=== PATIENT | male | born 1965 | race African-American/Black ===

== ENCOUNTER 2022-10-10 14:08 | Inpatient (IN) | payer OTHER ==
[2022-10-10 15:22] VITALS: BMI 41.3
[2022-10-10] MEDS ORDERED: BISMUTH SUBSALICYLATE 524 MG/30 ML PO PRN (16:30)
[2022-10-10] MEDS ORDERED: ONDANSETRON *ODT* 4 MG TABLET SL PRN (16:30)
[2022-10-10] MEDS ORDERED: LORazepam 1 MG TABLET PO PRN (16:30)
[2022-10-10] MEDS ORDERED: IBUPROFEN 600 MG TABLET (FP) PO PRN (16:30)
[2022-10-10] MEDS ORDERED: DICYCLOMINE HCL 10 MG CAPSULE PO PRN (16:30)
[2022-10-10] MEDS ORDERED: BENZONATATE 200 MG CAPSULE PO PRN (16:30)
[2022-10-10] MEDS ORDERED: NICOTINE 10 MG CARTRIDGE (INHALER) IH PRN (16:30)
[2022-10-10] MEDS ORDERED: POLYETHYLENE GLYCOL (HEALTHYLAX) 3350 17 GM PACKET PO PRN (16:30)
[2022-10-10] MEDS ORDERED: IBUPROFEN 400 MG TABLET (FP) PO PRN (16:30)
[2022-10-10] MEDS ORDERED: MAG HYDROX/AL HYDROX/SIMETH 30 ML UNIT-DOSE CUP PO PRN (16:30)
[2022-10-10] MEDS ORDERED: hydrOXYzine PAMOATE 25 MG CAPSULE (FP) PO PRN (16:30)
[2022-10-10] MEDS ORDERED: NALOXONE HCL 0.4 MG/ML VIAL IM PRN (16:30)
[2022-10-10] MEDS ORDERED: BENZOCAINE/MENTHOL (CHLORASEPTIC ) LOZENGE MM PRN (16:30)
[2022-10-10] MEDS ORDERED: guaiFENesin 600 MG TABLET.ER (FP) PO PRN (16:30)
[2022-10-10] MEDS ORDERED: ACETAMINOPHEN 325 MG TABLET (FP) PO PRN (16:30)
[2022-10-10] MEDS ORDERED: METHOCARBAMOL 500 MG TABLET PO PRN (16:30)
[2022-10-10] MEDS ORDERED: LOPERAMIDE HCL 2 MG CAPSULE PO PRN (16:30)
[2022-10-10] MEDS ORDERED: NICOTINE POLACRILEX 2 MG GUM BUC PRN (16:30)
[2022-10-10] MEDS ORDERED: MAGNESIUM HYDROX 2400MG/30ML ORAL SUSPENSION 30 ML CUP PO PRN (16:30)
[2022-10-10] MEDS ORDERED: NALOXONE HCL (KLOXXADO) 8 MG SPRAY NS PRN (16:30)
[2022-10-10] MEDS ORDERED: LORazepam 2 MG TABLET ONE (17:00)
[2022-10-10] MEDS ORDERED: PRENATAL VITAMINS W/ FOLIC ACID TABLET (FP) PO ONE (17:01)
[2022-10-10] MEDS: LORazepam 2 MG TABLET PO SCH ×2 (17:03→23:40)
[2022-10-10] MEDS: PRENATAL VITAMINS W/ FOLIC ACID TABLET (FP) PO SCH (17:03)
[2022-10-10] MEDS ORDERED: MELATONIN 5 MG TABLETS PO SCH (22:00)
[2022-10-10] MEDS: THIAMINE HCL 100 MG TABLET (FP) PO SCH (23:40)
[2022-10-10] MEDS: PHENYLEPHRINE HCL/COCOA BUTTER 1 EACH SUPP.RECT RC SCH (23:40)
[2022-10-11] MEDS: LIDOCAINE HCL 5% TOP OINTMENT 50 GM TUBE TP SCH ×2 (01:06→11:37)
[2022-10-11] MEDS: CYCLOBENZAPRINE HCL 5 MG TABLET PO SCH ×2 (01:12→11:38)
[2022-10-11] MEDS: LORazepam 2 MG TABLET PO SCH ×4 (05:18→22:51)
[2022-10-11] MEDS ORDERED: LEVOTHYROXINE NA 150 MCG TABLET PO SCH (07:00)
[2022-10-11] MEDS: LEVOTHYROXINE 100 MCG, LEVOTHYROXINE 50 MCG PO SCH (07:04)
[2022-10-11] MEDS: TAMSULOSIN HCL 0.4 MG CAP PO SCH (07:49)
[2022-10-11] MEDS ORDERED: FUROSEMIDE 20 MG TABLET (FP) PO SCH ×2 (10:00→16:54)
[2022-10-11] MEDS: ASPIRIN 81 MG CHEWABLE TABLETS PO SCH (10:41)
[2022-10-11] MEDS: FINASTERIDE 5 MG TABLET (FP) PO SCH (10:42)
[2022-10-11] MEDS: amLODIPine BESYLATE 10 MG TABLET (FP) PO SCH (10:42)
[2022-10-11] MEDS: GABAPENTIN 300 MG CAPSULE PO SCH ×2 (10:42→22:51)
[2022-10-11] MEDS: CELECOXIB 100 MG CAPSULE PO SCH ×2 (10:42→22:50)
[2022-10-11] MEDS: DICLOFENAC SODIUM 75 MG TABLET.DR PO SCH ×2 (10:43→22:54)
[2022-10-11] MEDS: PHENYLEPHRINE HCL/COCOA BUTTER 1 EACH SUPP.RECT RC SCH ×2 (10:45→22:53)
[2022-10-11] MEDS: PRENATAL VITAMINS W/ FOLIC ACID TABLET (FP) PO SCH (10:45)
[2022-10-11] MEDS: BACITRACIN ZINC 15 GM TUBE TOPICAL OINTMENT TP SCH ×2 (10:46→22:57)
[2022-10-11] MEDS: FLUTICASONE PROP 0.05% 16 GM NASAL SPRAY NS SCH (12:47)
[2022-10-11 13:51] LABS: HEMATOCRIT 26.4 % (35.4-49); HEMOGLOBIN 8.4 GM/dL (11.7-16.9); MCH 25.6 pg (25.7-33.7); MCHC 31.8 g/dl (32.0-35.9); MEAN CELL VOLUME 80.4 fl (80-96); MEAN PLT VOLUME 8.6 fl (7.5-11.1); PLATELET COUNT 113 10^3/uL (134-434); RBC 3.28 M/mm3 (4.00-5.60); RDW 17.1 % (11.9-15.9); WHITE BLOOD COUNT 5.5 K/mm3 (4.0-10.0)
[2022-10-11 15:02] LABS: POTASSIUM 4.2 mmol/L (3.5-5.1)
[2022-10-11 15:06] LABS: BLOOD UREA NITROGEN 13.6 mg/dL (7-18); CALCIUM 8.8 mg/dL (8.5-10.1)
[2022-10-11 15:07] LABS: ALBUMIN 3.3 g/dl (3.4-5.0)
[2022-10-11 15:09] LABS: CREATININE 0.8 mg/dL (0.55-1.3)
[2022-10-11 15:11] LABS: BILIRUBIN,TOTAL 0.9 mg/dL (0.2-1); TOT PROT 6.9 g/dl (6.4-8.2)
[2022-10-11] MEDS: FUROSEMIDE 20 MG TABLET (FP) PO SCH (17:53)
[2022-10-11] MEDS: THIAMINE HCL 100 MG TABLET (FP) PO SCH (22:51)
[2022-10-11] MEDS: ATORVASTATIN CA 20 MG TABLET (FP) PO SCH (22:51)
[2022-10-11] MEDS: MELATONIN 5 MG TABLETS PO SCH (22:53)
[2022-10-12] MEDS: LIDOCAINE HCL 5% TOP OINTMENT 50 GM TUBE TP SCH ×2 (00:21→12:00)
[2022-10-12] MEDS: CYCLOBENZAPRINE HCL 5 MG TABLET PO SCH ×2 (00:21→12:00)
[2022-10-12] MEDS: LORazepam 1 MG TABLET PO SCH ×4 (05:50→22:20)
[2022-10-12] MEDS: FUROSEMIDE 20 MG TABLET (FP) PO SCH ×2 (05:50→13:09)
[2022-10-12] MEDS: LEVOTHYROXINE 100 MCG, LEVOTHYROXINE 50 MCG PO SCH (06:00)
[2022-10-12] MEDS: TAMSULOSIN HCL 0.4 MG CAP PO SCH (09:21)
[2022-10-12] MEDS: DICLOFENAC SODIUM 75 MG TABLET.DR PO SCH ×2 (10:59→22:20)
[2022-10-12] MEDS: PRENATAL VITAMINS W/ FOLIC ACID TABLET (FP) PO SCH (10:59)
[2022-10-12] MEDS: FLUTICASONE PROP 0.05% 16 GM NASAL SPRAY NS SCH (11:00)
[2022-10-12] MEDS: FINASTERIDE 5 MG TABLET (FP) PO SCH (11:01)
[2022-10-12] MEDS: CELECOXIB 100 MG CAPSULE PO SCH ×2 (11:01→22:19)
[2022-10-12] MEDS: GABAPENTIN 300 MG CAPSULE PO SCH ×2 (11:03→22:19)
[2022-10-12] MEDS: ASPIRIN 81 MG CHEWABLE TABLETS PO SCH (11:03)
[2022-10-12] MEDS: amLODIPine BESYLATE 10 MG TABLET (FP) PO SCH (11:03)
[2022-10-12] MEDS: PHENYLEPHRINE HCL/COCOA BUTTER 1 EACH SUPP.RECT RC SCH ×2 (11:03→22:20)
[2022-10-12] MEDS: BACITRACIN ZINC 15 GM TUBE TOPICAL OINTMENT TP SCH ×2 (11:06→22:20)
[2022-10-12] MEDS: ASCORBIC ACID 500 MG TABLET (FP) PO SCH (12:00)
[2022-10-12] MEDS: LACTULOSE 20 GM/30 ML UDC (FOR ORAL USE ONLY) PO SCH ×3 (13:09→22:20)
[2022-10-12] MEDS: FERROUS SO4 325 MG TABLET (FP) PO SCH (17:28)
[2022-10-12] MEDS: ALBUTEROL SO4 HFA INHALER IH PRN ×2 (17:34→22:21)
[2022-10-12] MEDS: MELATONIN 5 MG TABLETS PO SCH (22:19)
[2022-10-12] MEDS: THIAMINE HCL 100 MG TABLET (FP) PO SCH (22:19)
[2022-10-12] MEDS: ATORVASTATIN CA 20 MG TABLET (FP) PO SCH (22:20)
[2022-10-13] MEDS ORDERED: LORazepam 0.5 MG TABLET PO PRN
[2022-10-13] MEDS: LIDOCAINE HCL 5% TOP OINTMENT 50 GM TUBE TP SCH ×2 (01:27→11:44)
[2022-10-13] MEDS: CYCLOBENZAPRINE HCL 5 MG TABLET PO SCH ×2 (01:27→11:44)
[2022-10-13] MEDS: LORazepam 0.5 MG TABLET PO SCH ×4 (05:23→22:36)
[2022-10-13] MEDS: FUROSEMIDE 20 MG TABLET (FP) PO SCH ×2 (05:24→13:04)
[2022-10-13] MEDS: LEVOTHYROXINE 100 MCG, LEVOTHYROXINE 50 MCG PO SCH (06:27)
[2022-10-13] MEDS: FERROUS SO4 325 MG TABLET (FP) PO SCH ×2 (07:13→17:43)
[2022-10-13] MEDS: TAMSULOSIN HCL 0.4 MG CAP PO SCH (08:12)
[2022-10-13 10:14] LABS: HEMATOCRIT 25.4 % (35.4-49); HEMOGLOBIN 8.4 GM/dL (11.7-16.9); MCH 26.6 pg (25.7-33.7); MCHC 33.3 g/dl (32.0-35.9); MEAN CELL VOLUME 79.8 fl (80-96); MEAN PLT VOLUME 9.2 fl (7.5-11.1); PLATELET COUNT 118 10^3/uL (134-434); RBC 3.18 M/mm3 (4.00-5.60); RDW 16.7 % (11.9-15.9); RETICULOCYTES 3.09 % (0.5-1.5); WHITE BLOOD COUNT 6.5 K/mm3 (4.0-10.0)
[2022-10-13] MEDS: LACTULOSE 20 GM/30 ML UDC (FOR ORAL USE ONLY) PO SCH ×4 (10:36→22:35)
[2022-10-13] MEDS: PRENATAL VITAMINS W/ FOLIC ACID TABLET (FP) PO SCH (10:36)
[2022-10-13] MEDS: FLUTICASONE PROP 0.05% 16 GM NASAL SPRAY NS SCH (10:36)
[2022-10-13] MEDS: amLODIPine BESYLATE 10 MG TABLET (FP) PO SCH (10:37)
[2022-10-13] MEDS: CELECOXIB 100 MG CAPSULE PO SCH ×2 (10:38→22:35)
[2022-10-13] MEDS: PHENYLEPHRINE HCL/COCOA BUTTER 1 EACH SUPP.RECT RC SCH ×3 (10:38→22:56)
[2022-10-13] MEDS: FINASTERIDE 5 MG TABLET (FP) PO SCH (10:38)
[2022-10-13] MEDS: ASPIRIN 81 MG CHEWABLE TABLETS PO SCH (10:38)
[2022-10-13] MEDS: GABAPENTIN 300 MG CAPSULE PO SCH ×2 (10:38→22:35)
[2022-10-13] MEDS: ASCORBIC ACID 500 MG TABLET (FP) PO SCH (10:38)
[2022-10-13] MEDS: BACITRACIN ZINC 15 GM TUBE TOPICAL OINTMENT TP SCH ×2 (10:38→22:46)
[2022-10-13] MEDS: DICLOFENAC SODIUM 75 MG TABLET.DR PO SCH ×2 (10:39→22:36)
[2022-10-13] MEDS: ALBUTEROL SO4 HFA INHALER IH PRN (14:51)
[2022-10-13] MEDS: THIAMINE HCL 100 MG TABLET (FP) PO SCH (22:35)
[2022-10-13] MEDS: MELATONIN 5 MG TABLETS PO SCH (22:35)
[2022-10-13] MEDS: ATORVASTATIN CA 20 MG TABLET (FP) PO SCH (22:35)
[2022-10-14] MEDS: CYCLOBENZAPRINE HCL 5 MG TABLET PO SCH ×2 (01:30→12:15)
[2022-10-14] MEDS: LIDOCAINE HCL 5% TOP OINTMENT 50 GM TUBE TP SCH ×2 (01:30→12:18)
[2022-10-14] MEDS ORDERED: LORazepam 0.5 MG TABLET PO ONE (05:00)
[2022-10-14] MEDS: FUROSEMIDE 20 MG TABLET (FP) PO SCH ×2 (05:28→14:00)
[2022-10-14 06:08] VITALS: RESP 18
[2022-10-14] MEDS: LEVOTHYROXINE 100 MCG, LEVOTHYROXINE 50 MCG PO SCH (06:18)
[2022-10-14] MEDS: FERROUS SO4 325 MG TABLET (FP) PO SCH (07:24)
[2022-10-14] MEDS: TAMSULOSIN HCL 0.4 MG CAP PO SCH (07:40)
[2022-10-14 09:20] VITALS: BP 119/56; PULSE 72; TEMP 97.8
[2022-10-14] MEDS: GABAPENTIN 300 MG CAPSULE PO SCH (10:27)
[2022-10-14] MEDS: ASPIRIN 81 MG CHEWABLE TABLETS PO SCH (10:27)
[2022-10-14] MEDS: FLUTICASONE PROP 0.05% 16 GM NASAL SPRAY NS SCH (10:27)
[2022-10-14] MEDS: FINASTERIDE 5 MG TABLET (FP) PO SCH (10:28)
[2022-10-14] MEDS: amLODIPine BESYLATE 10 MG TABLET (FP) PO SCH (10:28)
[2022-10-14] MEDS: CELECOXIB 100 MG CAPSULE PO SCH (10:28)
[2022-10-14] MEDS: LACTULOSE 20 GM/30 ML UDC (FOR ORAL USE ONLY) PO SCH ×2 (10:29→14:00)
[2022-10-14] MEDS: DICLOFENAC SODIUM 75 MG TABLET.DR PO SCH (10:29)
[2022-10-14] MEDS: PRENATAL VITAMINS W/ FOLIC ACID TABLET (FP) PO SCH (10:29)
[2022-10-14] MEDS: ASCORBIC ACID 500 MG TABLET (FP) PO SCH (10:32)
[2022-10-14] MEDS: PHENYLEPHRINE HCL/COCOA BUTTER 1 EACH SUPP.RECT RC SCH (10:37)
[2022-10-14] MEDS: BACITRACIN ZINC 15 GM TUBE TOPICAL OINTMENT TP SCH (10:53)
== END 2022-10-14 14:05 | disposition other institution (70) | DRG 775 ==
LOC: YASAS 14:08 → Y6N 17:58
PROVIDERS: ADMIT Allergy & Immunology; ATTEND Surgery
PROC: HZ2ZZZZ Detoxification Services for Substance Abuse Treatment (ICD-10-PCS; principal; 2022-10-10)
DX: F10.230 Alcohol dependence with withdrawal, uncomplicated (principal); F12.20 Cannabis dependence, uncomplicated; F31.9 Bipolar disorder, unspecified; D50.9 Iron deficiency anemia, unspecified; E72.20 Disorder of urea cycle metabolism, unspecified; E78.5 Hyperlipidemia, unspecified; G47.30 Sleep apnea, unspecified; I10 Essential (primary) hypertension; K74.60 Unspecified cirrhosis of liver; J44.9 Chronic obstructive pulmonary disease, unspecified; M54.50 Low back pain, unspecified; G89.29 Other chronic pain; Z62.810 Personal history of physical and sexual abuse in childhood; Z96.652 Presence of left artificial knee joint; Z99.89 Dependence on other enabling machines and devices; Z59.01 Sheltered homelessness; Z56.0 Unemployment, unspecified
CPT/HCPCS: 36415; 71046-TC-FY; 80053; 82140; 82607; 82746; 83540; 83550; 85027; 85045; 86780; 87811; 93005; 93010; C9803-CS; U0003; U0005

== ENCOUNTER 2022-10-14 14:01 | Inpatient (IN) | payer OTHER ==
[2022-10-14] MEDS ORDERED: POLYETHYLENE GLYCOL (HEALTHYLAX) 3350 17 GM PACKET PO PRN (14:18)
[2022-10-14] MEDS ORDERED: guaiFENesin 600 MG TABLET.ER (FP) PO PRN (14:18)
[2022-10-14] MEDS ORDERED: AMMONIUM LACTATE 12% LOTION 225 GM BOTTLE TP PRN (14:18)
[2022-10-14] MEDS ORDERED: NALOXONE HCL (KLOXXADO) 8 MG SPRAY NS PRN (14:18)
[2022-10-14] MEDS ORDERED: METHOCARBAMOL 500 MG TABLET PO PRN (14:18)
[2022-10-14] MEDS ORDERED: IBUPROFEN 400 MG TABLET (FP) PO PRN (14:18)
[2022-10-14] MEDS ORDERED: NALOXONE HCL 0.4 MG/ML VIAL IVPUSH PRN (14:18)
[2022-10-14] MEDS ORDERED: LOPERAMIDE HCL 2 MG CAPSULE PO PRN (14:18)
[2022-10-14] MEDS ORDERED: NICOTINE POLACRILEX 4 MG GUM BUC PRN (14:18)
[2022-10-14] MEDS ORDERED: COLLOIDAL OATMEAL 1 BAR EACH TP PRN (14:18)
[2022-10-14] MEDS ORDERED: ACETAMINOPHEN 325 MG TABLET (FP) PO PRN (14:18)
[2022-10-14] MEDS ORDERED: IBUPROFEN 600 MG TABLET (FP) PO PRN (14:18)
[2022-10-14] MEDS ORDERED: MAG HYDROX/AL HYDROX/SIMETH 30 ML UNIT-DOSE CUP PO PRN (14:18)
[2022-10-14] MEDS ORDERED: MAGNESIUM HYDROX 2400MG/30ML ORAL SUSPENSION 30 ML CUP PO PRN (14:18)
[2022-10-14] MEDS ORDERED: BENZONATATE 200 MG CAPSULE PO PRN (14:18)
[2022-10-14] MEDS ORDERED: hydrOXYzine PAMOATE 25 MG CAPSULE (FP) PO PRN (14:18)
[2022-10-14] MEDS ORDERED: NICOTINE 10 MG CARTRIDGE (INHALER) IH PRN (14:18)
[2022-10-14] MEDS ORDERED: BENZOCAINE/MENTHOL (CHLORASEPTIC ) LOZENGE MM PRN (14:18)
[2022-10-14] MEDS: CYCLOBENZAPRINE HCL 5 MG TABLET PO SCH (16:55)
[2022-10-14] MEDS: LACTULOSE 20 GM/30 ML UDC (FOR ORAL USE ONLY) PO SCH ×2 (18:03→21:07)
[2022-10-14] MEDS: FERROUS SO4 325 MG TABLET (FP) PO SCH (18:03)
[2022-10-14] MEDS: THIAMINE HCL 100 MG TABLET (FP) PO SCH (21:07)
[2022-10-14] MEDS: MELATONIN 5 MG TABLETS PO SCH (21:07)
[2022-10-14] MEDS: GABAPENTIN 300 MG CAPSULE PO SCH (21:08)
[2022-10-14] MEDS: ATORVASTATIN CA 20 MG TABLET (FP) PO SCH (21:08)
[2022-10-14] MEDS: BACITRACIN ZINC 15 GM TUBE TOPICAL OINTMENT TP SCH (21:09)
[2022-10-14] MEDS: CELECOXIB 100 MG CAPSULE PO SCH (21:09)
[2022-10-14] MEDS ORDERED: PATIENT'S OWN MEDICATION (NON-FORMULARY) (Thiamine Hcl [B-1] 100 MG Tablet) PO SCH (22:00)
[2022-10-14] MEDS ORDERED: FERROUS SO4 325 MG TABLET (FP) PO SCH (22:00)
[2022-10-14] MEDS ORDERED: DICLOFENAC SODIUM 75 MG TABLET.DR PO SCH (22:00)
[2022-10-15] MEDS: LEVOTHYROXINE 100 MCG, LEVOTHYROXINE 50 MCG PO SCH (06:46)
[2022-10-15] MEDS: FUROSEMIDE 20 MG TABLET (FP) PO SCH ×2 (06:47→13:24)
[2022-10-15] MEDS: CYCLOBENZAPRINE HCL 5 MG TABLET PO SCH ×2 (06:47→21:29)
[2022-10-15] MEDS ORDERED: LEVOTHYROXINE NA 150 MCG TABLET PO SCH (07:00)
[2022-10-15] MEDS: FERROUS SO4 325 MG TABLET (FP) PO SCH ×2 (07:26→18:25)
[2022-10-15] MEDS: ALBUTEROL SO4 HFA INHALER IH PRN (08:38)
[2022-10-15] MEDS: TAMSULOSIN HCL 0.4 MG CAP PO SCH (08:40)
[2022-10-15] MEDS: ASPIRIN 81 MG CHEWABLE TABLETS PO SCH (09:52)
[2022-10-15] MEDS: CELECOXIB 100 MG CAPSULE PO SCH ×2 (09:52→21:29)
[2022-10-15] MEDS: BACITRACIN ZINC 15 GM TUBE TOPICAL OINTMENT TP SCH (09:52)
[2022-10-15] MEDS: BISACODYL 5 MG TABLET.DR (FP) PO SCH (09:53)
[2022-10-15] MEDS: FLUTICASONE PROP 0.05% 16 GM NASAL SPRAY NS SCH (09:53)
[2022-10-15] MEDS: LACTULOSE 20 GM/30 ML UDC (FOR ORAL USE ONLY) PO SCH (09:53)
[2022-10-15] MEDS: GABAPENTIN 300 MG CAPSULE PO SCH ×2 (09:54→21:29)
[2022-10-15] MEDS: FOLIC ACID 1 MG TABLET (FP) PO SCH (09:54)
[2022-10-15] MEDS: PRENATAL VITAMINS W/ FOLIC ACID TABLET (FP) PO SCH (09:55)
[2022-10-15] MEDS: amLODIPine BESYLATE 10 MG TABLET (FP) PO SCH (09:55)
[2022-10-15] MEDS: FINASTERIDE 5 MG TABLET (FP) PO SCH (09:55)
[2022-10-15] MEDS: ASCORBIC ACID 500 MG TABLET (FP) PO SCH (09:56)
[2022-10-15] MEDS: CYANOCOBALAMIN 1,000 MCG TABLET (FP) PO SCH (09:56)
[2022-10-15] MEDS ORDERED: LACTULOSE 20 GM/30 ML UDC (FOR ORAL USE ONLY) PO PRN (12:23)
[2022-10-15] MEDS: THIAMINE HCL 100 MG TABLET (FP) PO SCH (21:29)
[2022-10-15] MEDS: ATORVASTATIN CA 20 MG TABLET (FP) PO SCH (21:29)
[2022-10-15] MEDS: MELATONIN 5 MG TABLETS PO SCH (21:30)
[2022-10-16] MEDS: LEVOTHYROXINE 100 MCG, LEVOTHYROXINE 50 MCG PO SCH (06:44)
[2022-10-16] MEDS: FUROSEMIDE 20 MG TABLET (FP) PO SCH ×2 (06:44→14:04)
[2022-10-16] MEDS: FERROUS SO4 325 MG TABLET (FP) PO SCH ×2 (07:13→18:49)
[2022-10-16] MEDS: TAMSULOSIN HCL 0.4 MG CAP PO SCH (07:46)
[2022-10-16] MEDS: CYANOCOBALAMIN 1,000 MCG TABLET (FP) PO SCH (09:49)
[2022-10-16] MEDS: ASPIRIN 81 MG CHEWABLE TABLETS PO SCH (09:49)
[2022-10-16] MEDS: GABAPENTIN 300 MG CAPSULE PO SCH ×2 (09:49→21:06)
[2022-10-16] MEDS: FOLIC ACID 1 MG TABLET (FP) PO SCH (09:49)
[2022-10-16] MEDS: FINASTERIDE 5 MG TABLET (FP) PO SCH (09:50)
[2022-10-16] MEDS: ASCORBIC ACID 500 MG TABLET (FP) PO SCH (09:50)
[2022-10-16] MEDS: CELECOXIB 100 MG CAPSULE PO SCH ×2 (09:51→21:06)
[2022-10-16] MEDS: CYCLOBENZAPRINE HCL 5 MG TABLET PO SCH ×2 (09:52→21:06)
[2022-10-16] MEDS: FLUTICASONE PROP 0.05% 16 GM NASAL SPRAY NS SCH (09:52)
[2022-10-16] MEDS: BISACODYL 5 MG TABLET.DR (FP) PO SCH (09:52)
[2022-10-16] MEDS: PRENATAL VITAMINS W/ FOLIC ACID TABLET (FP) PO SCH (09:53)
[2022-10-16] MEDS: amLODIPine BESYLATE 10 MG TABLET (FP) PO SCH (09:53)
[2022-10-16] MEDS: ALBUTEROL SO4 HFA INHALER IH PRN (09:54)
[2022-10-16] MEDS: THIAMINE HCL 100 MG TABLET (FP) PO SCH (21:06)
[2022-10-16] MEDS: ATORVASTATIN CA 20 MG TABLET (FP) PO SCH (21:06)
[2022-10-16] MEDS: NYSTATIN/TRIAMCINOLONE TOPICAL CREAM 15 GM TUBE TP SCH (21:07)
[2022-10-16] MEDS: SUVOREXANT 10 MG TABLET PO PRN (21:08)
[2022-10-16] MEDS ORDERED: MELATONIN 5 MG TABLETS PO SCH (22:00)
[2022-10-17] MEDS: LEVOTHYROXINE 100 MCG, LEVOTHYROXINE 50 MCG PO SCH (06:38)
[2022-10-17] MEDS: FUROSEMIDE 20 MG TABLET (FP) PO SCH ×2 (06:40→14:35)
[2022-10-17] MEDS: FERROUS SO4 325 MG TABLET (FP) PO SCH ×2 (07:12→18:20)
[2022-10-17] MEDS: TAMSULOSIN HCL 0.4 MG CAP PO SCH (08:00)
[2022-10-17] MEDS: FOLIC ACID 1 MG TABLET (FP) PO SCH (09:46)
[2022-10-17] MEDS: FINASTERIDE 5 MG TABLET (FP) PO SCH (09:46)
[2022-10-17] MEDS: CELECOXIB 100 MG CAPSULE PO SCH ×2 (09:46→21:23)
[2022-10-17] MEDS: ASPIRIN 81 MG CHEWABLE TABLETS PO SCH (09:46)
[2022-10-17] MEDS: ASCORBIC ACID 500 MG TABLET (FP) PO SCH (09:46)
[2022-10-17] MEDS: amLODIPine BESYLATE 10 MG TABLET (FP) PO SCH (09:46)
[2022-10-17] MEDS: GABAPENTIN 300 MG CAPSULE PO SCH ×2 (09:47→21:22)
[2022-10-17] MEDS: ALBUTEROL SO4 HFA INHALER IH PRN (09:47)
[2022-10-17] MEDS: CYANOCOBALAMIN 1,000 MCG TABLET (FP) PO SCH (09:47)
[2022-10-17] MEDS: NYSTATIN/TRIAMCINOLONE TOPICAL CREAM 15 GM TUBE TP SCH ×2 (10:34→21:31)
[2022-10-17] MEDS: PRENATAL VITAMINS W/ FOLIC ACID TABLET (FP) PO SCH (10:34)
[2022-10-17] MEDS: FLUTICASONE PROP 0.05% 16 GM NASAL SPRAY NS SCH (10:38)
[2022-10-17] MEDS: CYCLOBENZAPRINE HCL 5 MG TABLET PO SCH ×2 (10:38→21:23)
[2022-10-17] MEDS: BISACODYL 5 MG TABLET.DR (FP) PO SCH (10:38)
[2022-10-17] MEDS: THIAMINE HCL 100 MG TABLET (FP) PO SCH (21:22)
[2022-10-17] MEDS: ATORVASTATIN CA 20 MG TABLET (FP) PO SCH (21:23)
[2022-10-17] MEDS: SUVOREXANT 10 MG TABLET PO PRN (21:24)
[2022-10-18] MEDS: LEVOTHYROXINE 100 MCG, LEVOTHYROXINE 50 MCG PO SCH (06:28)
[2022-10-18] MEDS: FUROSEMIDE 20 MG TABLET (FP) PO SCH ×2 (06:28→14:07)
[2022-10-18] MEDS: FERROUS SO4 325 MG TABLET (FP) PO SCH ×2 (07:02→18:25)
[2022-10-18] MEDS: ALBUTEROL SO4 HFA INHALER IH PRN (08:25)
[2022-10-18] MEDS: TAMSULOSIN HCL 0.4 MG CAP PO SCH (08:25)
[2022-10-18] MEDS: GABAPENTIN 300 MG CAPSULE PO SCH ×2 (10:06→21:18)
[2022-10-18] MEDS: FOLIC ACID 1 MG TABLET (FP) PO SCH (10:07)
[2022-10-18] MEDS: ASPIRIN 81 MG CHEWABLE TABLETS PO SCH (10:07)
[2022-10-18] MEDS: FINASTERIDE 5 MG TABLET (FP) PO SCH (10:07)
[2022-10-18] MEDS: CELECOXIB 100 MG CAPSULE PO SCH ×2 (10:07→21:18)
[2022-10-18] MEDS: amLODIPine BESYLATE 10 MG TABLET (FP) PO SCH (10:07)
[2022-10-18] MEDS: CYANOCOBALAMIN 1,000 MCG TABLET (FP) PO SCH (10:07)
[2022-10-18] MEDS: ASCORBIC ACID 500 MG TABLET (FP) PO SCH (10:08)
[2022-10-18] MEDS: CYCLOBENZAPRINE HCL 5 MG TABLET PO SCH ×2 (10:09→21:19)
[2022-10-18] MEDS: PRENATAL VITAMINS W/ FOLIC ACID TABLET (FP) PO SCH (10:09)
[2022-10-18] MEDS: FLUTICASONE PROP 0.05% 16 GM NASAL SPRAY NS SCH (10:10)
[2022-10-18] MEDS: NYSTATIN/TRIAMCINOLONE TOPICAL CREAM 15 GM TUBE TP SCH ×2 (10:10→21:20)
[2022-10-18] MEDS: BISACODYL 5 MG TABLET.DR (FP) PO SCH (10:55)
[2022-10-18] MEDS: ATORVASTATIN CA 20 MG TABLET (FP) PO SCH (21:18)
[2022-10-18] MEDS: THIAMINE HCL 100 MG TABLET (FP) PO SCH (21:18)
[2022-10-19] MEDS: LEVOTHYROXINE 100 MCG, LEVOTHYROXINE 50 MCG PO SCH (06:29)
[2022-10-19] MEDS: FUROSEMIDE 20 MG TABLET (FP) PO SCH ×2 (06:29→13:45)
[2022-10-19] MEDS: FERROUS SO4 325 MG TABLET (FP) PO SCH ×2 (07:11→18:11)
[2022-10-19] MEDS: TAMSULOSIN HCL 0.4 MG CAP PO SCH (07:58)
[2022-10-19] MEDS: FOLIC ACID 1 MG TABLET (FP) PO SCH (09:36)
[2022-10-19] MEDS: CYANOCOBALAMIN 1,000 MCG TABLET (FP) PO SCH (09:36)
[2022-10-19] MEDS: GABAPENTIN 300 MG CAPSULE PO SCH ×2 (09:36→21:15)
[2022-10-19] MEDS: CYCLOBENZAPRINE HCL 5 MG TABLET PO SCH ×2 (09:37→21:15)
[2022-10-19] MEDS: ASPIRIN 81 MG CHEWABLE TABLETS PO SCH (09:37)
[2022-10-19] MEDS: amLODIPine BESYLATE 10 MG TABLET (FP) PO SCH (09:37)
[2022-10-19] MEDS: CELECOXIB 100 MG CAPSULE PO SCH ×2 (09:38→21:15)
[2022-10-19] MEDS: FINASTERIDE 5 MG TABLET (FP) PO SCH (09:38)
[2022-10-19] MEDS: ASCORBIC ACID 500 MG TABLET (FP) PO SCH (09:38)
[2022-10-19] MEDS: FLUTICASONE PROP 0.05% 16 GM NASAL SPRAY NS SCH (09:39)
[2022-10-19] MEDS: BISACODYL 5 MG TABLET.DR (FP) PO SCH (09:39)
[2022-10-19] MEDS: PRENATAL VITAMINS W/ FOLIC ACID TABLET (FP) PO SCH (09:39)
[2022-10-19] MEDS: NYSTATIN/TRIAMCINOLONE TOPICAL CREAM 15 GM TUBE TP SCH ×2 (09:40→21:16)
[2022-10-19] MEDS: ALBUTEROL SO4 HFA INHALER IH PRN (13:45)
[2022-10-19] MEDS: ATORVASTATIN CA 20 MG TABLET (FP) PO SCH (21:15)
[2022-10-19] MEDS: THIAMINE HCL 100 MG TABLET (FP) PO SCH (21:15)
[2022-10-20] MEDS: LEVOTHYROXINE 100 MCG, LEVOTHYROXINE 50 MCG PO SCH (06:32)
[2022-10-20] MEDS: FUROSEMIDE 20 MG TABLET (FP) PO SCH ×2 (06:32→13:45)
[2022-10-20] MEDS: FERROUS SO4 325 MG TABLET (FP) PO SCH ×2 (07:43→18:10)
[2022-10-20] MEDS: TAMSULOSIN HCL 0.4 MG CAP PO SCH (08:18)
[2022-10-20] MEDS: ALBUTEROL SO4 HFA INHALER IH PRN (09:49)
[2022-10-20] MEDS: FOLIC ACID 1 MG TABLET (FP) PO SCH (09:49)
[2022-10-20] MEDS: CYANOCOBALAMIN 1,000 MCG TABLET (FP) PO SCH (09:49)
[2022-10-20] MEDS: ASPIRIN 81 MG CHEWABLE TABLETS PO SCH (09:50)
[2022-10-20] MEDS: BISACODYL 5 MG TABLET.DR (FP) PO SCH (09:50)
[2022-10-20] MEDS: GABAPENTIN 300 MG CAPSULE PO SCH ×2 (09:50→21:32)
[2022-10-20] MEDS: amLODIPine BESYLATE 10 MG TABLET (FP) PO SCH (09:50)
[2022-10-20] MEDS: FINASTERIDE 5 MG TABLET (FP) PO SCH (09:51)
[2022-10-20] MEDS: CELECOXIB 100 MG CAPSULE PO SCH ×2 (09:51→21:27)
[2022-10-20] MEDS: ASCORBIC ACID 500 MG TABLET (FP) PO SCH (09:52)
[2022-10-20] MEDS: PRENATAL VITAMINS W/ FOLIC ACID TABLET (FP) PO SCH (09:52)
[2022-10-20] MEDS: CYCLOBENZAPRINE HCL 5 MG TABLET PO SCH ×2 (09:53→21:27)
[2022-10-20] MEDS: NYSTATIN/TRIAMCINOLONE TOPICAL CREAM 15 GM TUBE TP SCH ×2 (09:54→21:32)
[2022-10-20] MEDS: FLUTICASONE PROP 0.05% 16 GM NASAL SPRAY NS SCH (09:54)
[2022-10-20] MEDS: THIAMINE HCL 100 MG TABLET (FP) PO SCH (21:32)
[2022-10-20] MEDS: ATORVASTATIN CA 20 MG TABLET (FP) PO SCH (21:32)
[2022-10-20] MEDS: SUVOREXANT 10 MG TABLET PO PRN (21:53)
[2022-10-21] MEDS: LEVOTHYROXINE 100 MCG, LEVOTHYROXINE 50 MCG PO SCH (06:36)
[2022-10-21] MEDS: FUROSEMIDE 20 MG TABLET (FP) PO SCH ×2 (06:36→14:26)
[2022-10-21] MEDS: FERROUS SO4 325 MG TABLET (FP) PO SCH ×2 (07:58→18:03)
[2022-10-21] MEDS: TAMSULOSIN HCL 0.4 MG CAP PO SCH (08:02)
[2022-10-21] MEDS: CELECOXIB 100 MG CAPSULE PO SCH ×2 (09:39→21:13)
[2022-10-21] MEDS: BISACODYL 5 MG TABLET.DR (FP) PO SCH (09:39)
[2022-10-21] MEDS: CYANOCOBALAMIN 1,000 MCG TABLET (FP) PO SCH (09:39)
[2022-10-21] MEDS: FINASTERIDE 5 MG TABLET (FP) PO SCH (09:39)
[2022-10-21] MEDS: GABAPENTIN 300 MG CAPSULE PO SCH ×2 (09:39→21:13)
[2022-10-21] MEDS: CYCLOBENZAPRINE HCL 5 MG TABLET PO SCH ×2 (09:39→21:13)
[2022-10-21] MEDS: amLODIPine BESYLATE 10 MG TABLET (FP) PO SCH (09:40)
[2022-10-21] MEDS: PRENATAL VITAMINS W/ FOLIC ACID TABLET (FP) PO SCH (09:40)
[2022-10-21] MEDS: NYSTATIN/TRIAMCINOLONE TOPICAL CREAM 15 GM TUBE TP SCH ×2 (09:40→21:13)
[2022-10-21] MEDS: FLUTICASONE PROP 0.05% 16 GM NASAL SPRAY NS SCH (09:40)
[2022-10-21] MEDS: FOLIC ACID 1 MG TABLET (FP) PO SCH (09:40)
[2022-10-21] MEDS: ASCORBIC ACID 500 MG TABLET (FP) PO SCH (09:40)
[2022-10-21] MEDS: ASPIRIN 81 MG CHEWABLE TABLETS PO SCH (09:40)
[2022-10-21] MEDS: THIAMINE HCL 100 MG TABLET (FP) PO SCH (21:13)
[2022-10-21] MEDS: ATORVASTATIN CA 20 MG TABLET (FP) PO SCH (21:13)
[2022-10-21] MEDS: SUVOREXANT 10 MG TABLET PO PRN (21:15)
[2022-10-22] MEDS: FUROSEMIDE 20 MG TABLET (FP) PO SCH ×2 (06:21→14:15)
[2022-10-22] MEDS: LEVOTHYROXINE 100 MCG, LEVOTHYROXINE 50 MCG PO SCH (06:21)
[2022-10-22] MEDS: FERROUS SO4 325 MG TABLET (FP) PO SCH ×2 (07:03→16:46)
[2022-10-22] MEDS: TAMSULOSIN HCL 0.4 MG CAP PO SCH (07:34)
[2022-10-22] MEDS: PRENATAL VITAMINS W/ FOLIC ACID TABLET (FP) PO SCH (09:55)
[2022-10-22] MEDS: FOLIC ACID 1 MG TABLET (FP) PO SCH (09:56)
[2022-10-22] MEDS: GABAPENTIN 300 MG CAPSULE PO SCH ×2 (09:56→21:09)
[2022-10-22] MEDS: ASPIRIN 81 MG CHEWABLE TABLETS PO SCH (09:56)
[2022-10-22] MEDS: amLODIPine BESYLATE 10 MG TABLET (FP) PO SCH (09:56)
[2022-10-22] MEDS: CYANOCOBALAMIN 1,000 MCG TABLET (FP) PO SCH (09:56)
[2022-10-22] MEDS: FLUTICASONE PROP 0.05% 16 GM NASAL SPRAY NS SCH (09:56)
[2022-10-22] MEDS: CELECOXIB 100 MG CAPSULE PO SCH ×2 (09:58→21:09)
[2022-10-22] MEDS: CYCLOBENZAPRINE HCL 5 MG TABLET PO SCH ×2 (09:58→21:09)
[2022-10-22] MEDS: FINASTERIDE 5 MG TABLET (FP) PO SCH (09:59)
[2022-10-22] MEDS: ASCORBIC ACID 500 MG TABLET (FP) PO SCH (09:59)
[2022-10-22] MEDS: NYSTATIN/TRIAMCINOLONE TOPICAL CREAM 15 GM TUBE TP SCH ×2 (10:00→21:09)
[2022-10-22] MEDS: BISACODYL 5 MG TABLET.DR (FP) PO SCH (10:00)
[2022-10-22 16:49] LABS: HIV INTERPRETATION NEGATIVE (NEGATIVE)
[2022-10-22] MEDS: THIAMINE HCL 100 MG TABLET (FP) PO SCH (21:08)
[2022-10-22] MEDS: ATORVASTATIN CA 20 MG TABLET (FP) PO SCH (21:09)
[2022-10-22] MEDS: SUVOREXANT 10 MG TABLET PO PRN (21:09)
[2022-10-23] MEDS: FUROSEMIDE 20 MG TABLET (FP) PO SCH ×2 (06:18→14:13)
[2022-10-23] MEDS: LEVOTHYROXINE 100 MCG, LEVOTHYROXINE 50 MCG PO SCH (06:19)
[2022-10-23] MEDS: FERROUS SO4 325 MG TABLET (FP) PO SCH ×2 (07:08→17:04)
[2022-10-23] MEDS: TAMSULOSIN HCL 0.4 MG CAP PO SCH (07:46)
[2022-10-23] MEDS: CELECOXIB 100 MG CAPSULE PO SCH ×2 (09:41→21:16)
[2022-10-23] MEDS: ASPIRIN 81 MG CHEWABLE TABLETS PO SCH (09:41)
[2022-10-23] MEDS: CYCLOBENZAPRINE HCL 5 MG TABLET PO SCH ×2 (09:41→21:16)
[2022-10-23] MEDS: BISACODYL 5 MG TABLET.DR (FP) PO SCH (09:42)
[2022-10-23] MEDS: FOLIC ACID 1 MG TABLET (FP) PO SCH (09:42)
[2022-10-23] MEDS: FLUTICASONE PROP 0.05% 16 GM NASAL SPRAY NS SCH (09:42)
[2022-10-23] MEDS: amLODIPine BESYLATE 10 MG TABLET (FP) PO SCH (09:43)
[2022-10-23] MEDS: GABAPENTIN 300 MG CAPSULE PO SCH ×2 (09:43→21:16)
[2022-10-23] MEDS: NYSTATIN/TRIAMCINOLONE TOPICAL CREAM 15 GM TUBE TP SCH ×2 (09:43→21:16)
[2022-10-23] MEDS: CYANOCOBALAMIN 1,000 MCG TABLET (FP) PO SCH (09:44)
[2022-10-23] MEDS: PRENATAL VITAMINS W/ FOLIC ACID TABLET (FP) PO SCH (09:44)
[2022-10-23] MEDS: FINASTERIDE 5 MG TABLET (FP) PO SCH (09:44)
[2022-10-23] MEDS: ASCORBIC ACID 500 MG TABLET (FP) PO SCH (09:44)
[2022-10-23] MEDS: ATORVASTATIN CA 20 MG TABLET (FP) PO SCH (21:16)
[2022-10-23] MEDS: THIAMINE HCL 100 MG TABLET (FP) PO SCH (21:16)
[2022-10-24] MEDS: FUROSEMIDE 20 MG TABLET (FP) PO SCH ×2 (06:07→14:05)
[2022-10-24] MEDS: LEVOTHYROXINE 100 MCG, LEVOTHYROXINE 50 MCG PO SCH (06:08)
[2022-10-24] MEDS: FERROUS SO4 325 MG TABLET (FP) PO SCH ×2 (07:02→16:55)
[2022-10-24] MEDS: TAMSULOSIN HCL 0.4 MG CAP PO SCH (07:39)
[2022-10-24] MEDS: CELECOXIB 100 MG CAPSULE PO SCH ×2 (10:28→21:19)
[2022-10-24] MEDS: FOLIC ACID 1 MG TABLET (FP) PO SCH (10:28)
[2022-10-24] MEDS: CYANOCOBALAMIN 1,000 MCG TABLET (FP) PO SCH (10:28)
[2022-10-24] MEDS: ASCORBIC ACID 500 MG TABLET (FP) PO SCH (10:28)
[2022-10-24] MEDS: FINASTERIDE 5 MG TABLET (FP) PO SCH (10:28)
[2022-10-24] MEDS: CYCLOBENZAPRINE HCL 5 MG TABLET PO SCH ×2 (10:28→21:18)
[2022-10-24] MEDS: GABAPENTIN 300 MG CAPSULE PO SCH ×2 (10:28→21:19)
[2022-10-24] MEDS: amLODIPine BESYLATE 10 MG TABLET (FP) PO SCH (10:28)
[2022-10-24] MEDS: PRENATAL VITAMINS W/ FOLIC ACID TABLET (FP) PO SCH (10:28)
[2022-10-24] MEDS: ASPIRIN 81 MG CHEWABLE TABLETS PO SCH (10:29)
[2022-10-24] MEDS: NYSTATIN/TRIAMCINOLONE TOPICAL CREAM 15 GM TUBE TP SCH ×2 (10:31→21:18)
[2022-10-24] MEDS: FLUTICASONE PROP 0.05% 16 GM NASAL SPRAY NS SCH (10:31)
[2022-10-24] MEDS: BISACODYL 5 MG TABLET.DR (FP) PO SCH (10:32)
[2022-10-24] MEDS: THIAMINE HCL 100 MG TABLET (FP) PO SCH (21:18)
[2022-10-24] MEDS: ATORVASTATIN CA 20 MG TABLET (FP) PO SCH (21:19)
[2022-10-25] MEDS: LEVOTHYROXINE 100 MCG, LEVOTHYROXINE 50 MCG PO SCH (06:27)
[2022-10-25] MEDS: FUROSEMIDE 20 MG TABLET (FP) PO SCH (06:28)
[2022-10-25 06:36] VITALS: RESP 16; TEMP 97.4
[2022-10-25] MEDS: FERROUS SO4 325 MG TABLET (FP) PO SCH (07:16)
[2022-10-25] MEDS: TAMSULOSIN HCL 0.4 MG CAP PO SCH (07:47)
[2022-10-25 08:56] VITALS: BP 130/65; PULSE 82
[2022-10-25] MEDS: CYANOCOBALAMIN 1,000 MCG TABLET (FP) PO SCH (09:36)
[2022-10-25] MEDS: FOLIC ACID 1 MG TABLET (FP) PO SCH (09:36)
[2022-10-25] MEDS: ASPIRIN 81 MG CHEWABLE TABLETS PO SCH (09:36)
[2022-10-25] MEDS: GABAPENTIN 300 MG CAPSULE PO SCH (09:36)
[2022-10-25] MEDS: NYSTATIN/TRIAMCINOLONE TOPICAL CREAM 15 GM TUBE TP SCH (09:37)
[2022-10-25] MEDS: amLODIPine BESYLATE 10 MG TABLET (FP) PO SCH (09:37)
[2022-10-25] MEDS: FLUTICASONE PROP 0.05% 16 GM NASAL SPRAY NS SCH (09:37)
[2022-10-25] MEDS: PRENATAL VITAMINS W/ FOLIC ACID TABLET (FP) PO SCH (09:37)
[2022-10-25] MEDS: FINASTERIDE 5 MG TABLET (FP) PO SCH (09:37)
[2022-10-25] MEDS: CELECOXIB 100 MG CAPSULE PO SCH (09:38)
[2022-10-25] MEDS: ASCORBIC ACID 500 MG TABLET (FP) PO SCH (09:38)
[2022-10-25] MEDS: CYCLOBENZAPRINE HCL 5 MG TABLET PO SCH (09:38)
[2022-10-25] MEDS: BISACODYL 5 MG TABLET.DR (FP) PO SCH (09:39)
== END 2022-10-25 09:54 | disposition home or self-care (01) | DRG 772 ==
LOC: YASAS 14:01 → Y3E 14:02
PROVIDERS: ADMIT Allergy & Immunology; ATTEND Psychiatry & Neurology Pain Medicine
PROC: HZ42ZZZ Group Counseling for Substance Abuse Treatment, Cognitive-Behavioral (ICD-10-PCS; principal; 2022-10-14)
DX: F10.20 Alcohol dependence, uncomplicated (principal); F12.20 Cannabis dependence, uncomplicated; F17.210 Nicotine dependence, cigarettes, uncomplicated; F31.9 Bipolar disorder, unspecified; E78.5 Hyperlipidemia, unspecified; E03.9 Hypothyroidism, unspecified; I10 Essential (primary) hypertension; J44.9 Chronic obstructive pulmonary disease, unspecified; K74.60 Unspecified cirrhosis of liver; G47.39 Other sleep apnea; I83.93 Asymptomatic varicose veins of bilateral lower extremities; M54.50 Low back pain, unspecified; G89.29 Other chronic pain; Z99.89 Dependence on other enabling machines and devices; Z59.01 Sheltered homelessness
CPT/HCPCS: 36415; 73630-TC-LT; 82140; 86803; 87389

== ENCOUNTER 2023-04-29 14:13 | Inpatient (IN) | payer OTHER ==
[2023-04-29 14:53] VITALS: BMI 46.0
[2023-04-29] MEDS ORDERED: DICYCLOMINE HCL 10 MG CAPSULE PO PRN (16:12)
[2023-04-29] MEDS ORDERED: BENZOCAINE/MENTHOL (CHLORASEPTIC ) LOZENGE MM PRN (16:12)
[2023-04-29] MEDS ORDERED: ACETAMINOPHEN 325 MG TABLET (FP) PO PRN (16:12)
[2023-04-29] MEDS ORDERED: ONDANSETRON *ODT* 4 MG TABLET SL PRN (16:12)
[2023-04-29] MEDS ORDERED: METHOCARBAMOL 500 MG TABLET PO PRN (16:12)
[2023-04-29] MEDS ORDERED: MAGNESIUM HYDROX 2400MG/30ML ORAL SUSPENSION 30 ML CUP PO PRN (16:12)
[2023-04-29] MEDS ORDERED: hydrOXYzine PAMOATE 25 MG CAPSULE (FP) PO PRN (16:12)
[2023-04-29] MEDS ORDERED: LOPERAMIDE HCL 2 MG CAPSULE PO PRN (16:12)
[2023-04-29] MEDS ORDERED: IBUPROFEN 400 MG TABLET (FP) PO PRN (16:12)
[2023-04-29] MEDS ORDERED: MAG HYDROX/AL HYDROX/SIMETH 30 ML UNIT-DOSE CUP PO PRN (16:12)
[2023-04-29] MEDS ORDERED: guaiFENesin 600 MG TABLET.ER (FP) PO PRN (16:12)
[2023-04-29] MEDS ORDERED: POLYETHYLENE GLYCOL (HEALTHYLAX) 3350 17 GM PACKET PO PRN (16:12)
[2023-04-29] MEDS ORDERED: BENZONATATE 200 MG CAPSULE PO PRN (16:12)
[2023-04-29] MEDS ORDERED: BISMUTH SUBSALICYLATE 524 MG/30 ML PO PRN (16:12)
[2023-04-29] MEDS ORDERED: LORazepam 1 MG TABLET PO PRN (16:12)
[2023-04-29] MEDS ORDERED: NALOXONE HCL (KLOXXADO) 8 MG SPRAY NS PRN (16:12)
[2023-04-29] MEDS ORDERED: NALOXONE HCL 0.4 MG/ML VIAL IM PRN (16:12)
[2023-04-29] MEDS ORDERED: IBUPROFEN 600 MG TABLET (FP) PO PRN (16:12)
[2023-04-29] MEDS ORDERED: LORazepam 2 MG TABLET ONE (17:46)
[2023-04-29] MEDS: LORazepam 2 MG TABLET PO SCH ×2 (17:49→22:45)
[2023-04-29] MEDS ORDERED: CYCLOBENZAPRINE HCL 10 MG TABLET (FP) PO PRN (17:50)
[2023-04-29] MEDS: ALBUTEROL SO4 HFA INHALER IH PRN (18:12)
[2023-04-29] MEDS: PRENATAL VITAMINS W/ FOLIC ACID TABLET (FP) PO SCH (18:15)
[2023-04-29] MEDS: ATORVASTATIN CA 20 MG TABLET (FP) PO SCH (22:44)
[2023-04-29] MEDS: MELATONIN 5 MG TABLETS PO SCH (22:44)
[2023-04-29] MEDS: FERROUS SO4 325 MG TABLET (FP) PO SCH (22:44)
[2023-04-29] MEDS: THIAMINE HCL 100 MG TABLET (FP) PO SCH (22:44)
[2023-04-30] MEDS: LORazepam 2 MG TABLET PO SCH ×4 (05:57→22:34)
[2023-04-30] MEDS: TAMSULOSIN HCL 0.4 MG CAP PO SCH (09:14)
[2023-04-30] MEDS: ASCORBIC ACID 500 MG TABLET (FP) PO SCH (10:27)
[2023-04-30] MEDS: amLODIPine BESYLATE 10 MG TABLET (FP) PO SCH (10:27)
[2023-04-30] MEDS: FINASTERIDE 5 MG TABLET (FP) PO SCH (10:27)
[2023-04-30] MEDS: PRENATAL VITAMINS W/ FOLIC ACID TABLET (FP) PO SCH (10:27)
[2023-04-30] MEDS: FERROUS SO4 325 MG TABLET (FP) PO SCH ×2 (10:27→22:34)
[2023-04-30] MEDS: ASPIRIN 81 MG CHEWABLE TABLETS PO SCH (10:27)
[2023-04-30] MEDS: FLUTICASONE PROP 0.05% 16 GM NASAL SPRAY NS SCH (10:28)
[2023-04-30] MEDS: NICOTINE 14 MG/24 HOURS TOPICAL PATCH TD SCH (10:33)
[2023-04-30 10:41] LABS: HEMATOCRIT 39.2 % (35.4-49); HEMOGLOBIN 12.3 GM/dL (11.7-16.9); MCH 25.3 pg (25.7-33.7); MCHC 31.3 g/dl (32.0-35.9); MEAN CELL VOLUME 80.7 fl (80-96); MEAN PLT VOLUME 8.5 fl (7.5-11.1); PLATELET COUNT 293 10^3/uL (134-434); RBC 4.86 M/mm3 (4.00-5.60); RDW 25.3 % (11.9-15.9); WHITE BLOOD COUNT 7.7 K/mm3 (4.0-10.0)
[2023-04-30 13:31] LABS: CHLORIDE 106 mmol/L (98-107); POTASSIUM 4.6 mmol/L (3.5-5.1); SODIUM 141 mmol/L (136-145)
[2023-04-30 13:39] LABS: BLOOD UREA NITROGEN 15.3 mg/dL (7-18)
[2023-04-30 13:42] LABS: GLUCOSE,RANDOM 91 mg/dL (74-106)
[2023-04-30 13:43] LABS: ALBUMIN 3.2 g/dl (3.4-5.0); ANION GAP 5 mmol/L (4-13); CO2 29 mmol/L (21-32)
[2023-04-30 13:45] LABS: SGOT/AST 45 U/L (15-37); SGPT/ALT 41 U/L (13-61)
[2023-04-30 13:46] LABS: TOT PROT 7.6 g/dl (6.4-8.2)
[2023-04-30 13:48] LABS: ALK PHOS 187 U/L (45-117)
[2023-04-30 13:51] LABS: BILIRUBIN,TOTAL 0.3 mg/dL (0.2-1)
[2023-04-30] MEDS ORDERED: METHOCARBAMOL 750 MG TABLET PO SCH (15:45)
[2023-04-30] MEDS: LACTULOSE 20 GM/30 ML UDC (FOR ORAL USE ONLY) PO SCH ×2 (18:51→22:34)
[2023-04-30] MEDS: ALBUTEROL SO4 HFA INHALER IH PRN (18:51)
[2023-04-30] MEDS ORDERED: cloNIDine HCL 0.1 MG TABLET PO PRN (19:24)
[2023-04-30] MEDS: CYCLOBENZAPRINE HCL 5 MG TABLET PO PRN (22:34)
[2023-04-30] MEDS: ATORVASTATIN CA 20 MG TABLET (FP) PO SCH (22:34)
[2023-04-30] MEDS: THIAMINE HCL 100 MG TABLET (FP) PO SCH (22:34)
[2023-04-30] MEDS: MELATONIN 5 MG TABLETS PO SCH (22:34)
[2023-05-01] MEDS: LORazepam 1 MG TABLET PO SCH ×4 (05:50→22:01)
[2023-05-01] MEDS: LEVOTHYROXINE NA 150 MCG TABLET PO SCH (06:31)
[2023-05-01] MEDS: TAMSULOSIN HCL 0.4 MG CAP PO SCH (09:26)
[2023-05-01] MEDS: amLODIPine BESYLATE 10 MG TABLET (FP) PO SCH (10:57)
[2023-05-01] MEDS: FERROUS SO4 325 MG TABLET (FP) PO SCH ×2 (10:57→22:01)
[2023-05-01] MEDS: ASCORBIC ACID 500 MG TABLET (FP) PO SCH (10:57)
[2023-05-01] MEDS: NICOTINE 14 MG/24 HOURS TOPICAL PATCH TD SCH (10:57)
[2023-05-01] MEDS: ASPIRIN 81 MG CHEWABLE TABLETS PO SCH (10:57)
[2023-05-01] MEDS: LACTULOSE 20 GM/30 ML UDC (FOR ORAL USE ONLY) PO SCH ×4 (10:57→22:01)
[2023-05-01] MEDS: PRENATAL VITAMINS W/ FOLIC ACID TABLET (FP) PO SCH (10:57)
[2023-05-01] MEDS: FINASTERIDE 5 MG TABLET (FP) PO SCH (10:57)
[2023-05-01] MEDS: FLUTICASONE PROP 0.05% 16 GM NASAL SPRAY NS SCH (10:58)
[2023-05-01] MEDS: FUROSEMIDE 20 MG TABLET (FP) PO SCH (10:58)
[2023-05-01] MEDS: ATORVASTATIN CA 20 MG TABLET (FP) PO SCH (22:01)
[2023-05-01] MEDS: THIAMINE HCL 100 MG TABLET (FP) PO SCH (22:01)
[2023-05-01] MEDS: MELATONIN 5 MG TABLETS PO SCH (22:01)
[2023-05-01] MEDS: ALBUTEROL SO4 HFA INHALER IH PRN (22:02)
[2023-05-02] MEDS ORDERED: LORazepam 0.5 MG TABLET PO PRN
[2023-05-02] MEDS: LORazepam 0.5 MG TABLET PO SCH ×3 (05:36→18:17)
[2023-05-02] MEDS: LEVOTHYROXINE NA 150 MCG TABLET PO SCH (06:16)
[2023-05-02] MEDS: TAMSULOSIN HCL 0.4 MG CAP PO SCH (08:56)
[2023-05-02] MEDS ORDERED: LEVOTHYROXINE 100 MCG, LEVOTHYROXINE 50 MCG PO ONE (09:45)
[2023-05-02] MEDS: LACTULOSE 20 GM/30 ML UDC (FOR ORAL USE ONLY) PO SCH ×3 (10:35→18:17)
[2023-05-02] MEDS: FLUTICASONE PROP 0.05% 16 GM NASAL SPRAY NS SCH (10:35)
[2023-05-02] MEDS: ASPIRIN 81 MG CHEWABLE TABLETS PO SCH ×2 (10:36→10:39)
[2023-05-02] MEDS: FERROUS SO4 325 MG TABLET (FP) PO SCH (10:36)
[2023-05-02] MEDS: FINASTERIDE 5 MG TABLET (FP) PO SCH (10:36)
[2023-05-02] MEDS: amLODIPine BESYLATE 10 MG TABLET (FP) PO SCH (10:36)
[2023-05-02] MEDS: ASCORBIC ACID 500 MG TABLET (FP) PO SCH (10:37)
[2023-05-02] MEDS: FUROSEMIDE 20 MG TABLET (FP) PO SCH (10:37)
[2023-05-02] MEDS: PRENATAL VITAMINS W/ FOLIC ACID TABLET (FP) PO SCH (10:37)
[2023-05-02] MEDS: NICOTINE 14 MG/24 HOURS TOPICAL PATCH TD SCH (10:38)
[2023-05-02] MEDS: ALBUTEROL SO4 HFA INHALER IH PRN (14:00)
[2023-05-02 14:10] VITALS: BP 131/72; PULSE 84; RESP 16; TEMP 97.6
[2023-05-02] MEDS: CYCLOBENZAPRINE HCL 5 MG TABLET PO PRN (14:10)
[2023-05-02] MEDS ORDERED: ASPIRIN 81 MG CHEWABLE TABLETS ONE (14:16)
[2023-05-02] MEDS ORDERED: NITROGLYCERIN SUBLINGUAL 1/150 0.4 MG TAB ONE (14:17)
[2023-05-02] MEDS ORDERED: ASPIRIN 81 MG CHEWABLE TABLETS PO ONE (15:12)
[2023-05-02] MEDS ORDERED: NITROGLYCERIN SUBLINGUAL 1/150 0.4 MG TAB SL ONE (15:13)
[2023-05-03] MEDS ORDERED: LORazepam 0.5 MG TABLET PO ONE (05:00)
[2023-05-03] MEDS ORDERED: LEVOTHYROXINE 100 MCG, LEVOTHYROXINE 50 MCG PO SCH (07:00)
== END 2023-05-02 20:53 | disposition short-term general hospital (02) | DRG 774 ==
LOC: YASAS 14:13 → Y3N 16:57
PROVIDERS: ADMIT Allergy & Immunology; ATTEND Surgery
PROC: HZ2ZZZZ Detoxification Services for Substance Abuse Treatment (ICD-10-PCS; principal; 2023-04-29)
DX: F10.230 Alcohol dependence with withdrawal, uncomplicated (principal); F14.10 Cocaine abuse, uncomplicated; F12.20 Cannabis dependence, uncomplicated; F17.210 Nicotine dependence, cigarettes, uncomplicated; F19.24 Other psychoactive substance dependence with psychoactive substance-induced mood disorder; F31.9 Bipolar disorder, unspecified; G47.00 Insomnia, unspecified; G47.30 Sleep apnea, unspecified; I10 Essential (primary) hypertension; J44.9 Chronic obstructive pulmonary disease, unspecified; R07.9 Chest pain, unspecified; E03.9 Hypothyroidism, unspecified; R79.89 Other specified abnormal findings of blood chemistry; R06.02 Shortness of breath; Z99.89 Dependence on other enabling machines and devices
CPT/HCPCS: 36415; 80053; 80307; 82140; 85027; 86780; 87635

== ENCOUNTER 2023-05-02 15:33 | Observation (INO) | payer OTHER ==
[2023-05-02] MEDS ORDERED: SODIUM CHLORIDE 0.9% 500 ML INFUS.BAG IV ONE (16:20)
[2023-05-02] MEDS ORDERED: CEFTRIAXONE 1,000 MG in DEXTROSE 5%-WATER - 50 ML IVPB ONE (16:20)
[2023-05-02 17:25] LABS: VENOUS BASE EXCESS 3.9 mmol/L (-2-2); VENOUS O2 SATURATION 57.8 % (70-80); VENOUS PCO2 56.6 mmHg (38-52); VENOUS PH 7.355 (7.310-7.410)
[2023-05-02 17:32] LABS: BASO % 0.8 % (0-2.0); EOS % 1.8 % (0-4.5); HEMATOCRIT 39.9 % (35.4-49); HEMOGLOBIN 12.6 GM/dL (11.7-16.9); LYMPH % 19.3 % (8-40); MCH 25.4 pg (25.7-33.7); MCHC 31.6 g/dl (32.0-35.9); MEAN CELL VOLUME 80.3 fl (80-96); MEAN PLT VOLUME 8.2 fl (7.5-11.1); MONO % 9.7 % (3.8-10.2); NEUT % 68.4 % (42.8-82.8); PLATELET COUNT 273 10^3/uL (134-434); RBC 4.97 M/mm3 (4.00-5.60); RDW 24.6 % (11.9-15.9); WHITE BLOOD COUNT 8.3 K/mm3 (4.0-10.0)
[2023-05-02 17:34] LABS: EPI CELLS 1 /uL (0-25.1); HYALINE CASTS 1 /uL (0-3.1); PH,URINE 5.5 (5.0-8.0); URINE APPEARANCE CLEAR; URINE BACTERIA 3 /uL (0-1359); URINE BILIRUBIN NEGATIVE (NEGATIVE); URINE COLOR YELLOW; URINE GLUCOSE (UA) NEGATIVE (NEGATIVE); URINE KETONE NEGATIVE (NEGATIVE); URINE LEUK ESTERASE TRACE (NEGATIVE); URINE NITRITE NEGATIVE (NEGATIVE); URINE PROTEIN NEGATIVE (NEGATIVE); URINE RBC 5 /uL (0-23.9); URINE UROBILINOGEN 0.2 mg/dL (0.2-1.0); URINE WBC 8 /uL (0-25.8)
[2023-05-02] MEDS ORDERED: CEFTRIAXONE 1 GM/50 ML BAG ONE (17:39)
[2023-05-02 17:42] LABS: INR 1.31 (0.83-1.09); PROTHROMBIN TIME (PATIENT) 15.1 SEC (9.7-13.0)
[2023-05-02 18:00] LABS: POTASSIUM 4.7 mmol/L (3.5-5.1)
[2023-05-02 18:02] LABS: ALBUMIN 3.2 g/dl (3.4-5.0); BLOOD UREA NITROGEN 18.6 mg/dL (7-18); CALCIUM 9.2 mg/dL (8.5-10.1)
[2023-05-02 18:06] LABS: CREATININE 1.1 mg/dL (0.55-1.3)
[2023-05-02 18:07] LABS: BILIRUBIN,TOTAL 0.3 mg/dL (0.2-1); TOT PROT 7.6 g/dl (6.4-8.2)
[2023-05-02 18:17] LABS: ANISOCYTOSIS 3+; MACROCYTOSIS 0; OVALOCYTE 1+
[2023-05-03] MEDS ORDERED: chlordiazePOXIDE HCL 25 MG CAPSULE PO PRN (01:39)
[2023-05-03 02:25] VITALS: BMI 45.6
[2023-05-03] MEDS ORDERED: LORazepam 1 MG TABLET PO PRN (02:26)
[2023-05-03] MEDS ORDERED: chlordiazePOXIDE HCL 25 MG CAPSULE PO SCH (05:00)
[2023-05-03] MEDS: FUROSEMIDE 20 MG TABLET (FP) PO SCH ×2 (05:38→15:34)
[2023-05-03] MEDS: LORazepam 1 MG TABLET PO SCH ×4 (05:38→23:38)
[2023-05-03] MEDS: LEVOTHYROXINE NA 75 MCG TABLET (FP) PO SCH (06:15)
[2023-05-03] MEDS ORDERED: FERROUS SO4 325 MG TABLET (FP) PO SCH (08:00)
[2023-05-03] MEDS: LACTULOSE 20 GM/30 ML UDC (FOR ORAL USE ONLY) PO SCH ×3 (09:37→17:39)
[2023-05-03] MEDS: ENOXAPARIN NA (PORCINE) 40 MG/0.4 ML DISP.SYRIN SQ SCH ×2 (09:37→21:55)
[2023-05-03] MEDS: NICOTINE 14 MG/24 HOURS TOPICAL PATCH TD SCH ×2 (09:37→12:54)
[2023-05-03] MEDS: CYCLOBENZAPRINE HCL 5 MG TABLET PO SCH ×2 (09:38→21:55)
[2023-05-03] MEDS: FINASTERIDE 5 MG TABLET (FP) PO SCH (09:38)
[2023-05-03] MEDS: ASPIRIN 81 MG CHEWABLE TABLETS PO SCH (09:38)
[2023-05-03] MEDS: ASCORBIC ACID 500 MG TABLET (FP) PO SCH (09:38)
[2023-05-03] MEDS: GABAPENTIN 300 MG CAPSULE PO SCH ×2 (09:38→21:55)
[2023-05-03] MEDS: FOLIC ACID 1 MG TABLET (FP) PO SCH (09:38)
[2023-05-03] MEDS: THIAMINE HCL 100 MG TABLET (FP) PO SCH (09:39)
[2023-05-03] MEDS: TAMSULOSIN HCL 0.4 MG CAP PO SCH (09:39)
[2023-05-03] MEDS: BACITRACIN ZINC 15 GM TUBE TOPICAL OINTMENT TP SCH ×2 (09:39→21:59)
[2023-05-03] MEDS ORDERED: CELECOXIB 100 MG CAPSULE PO SCH (10:00)
[2023-05-03] MEDS ORDERED: LIDOCAINE HCL 5% TOP OINTMENT 50 GM TUBE TP SCH (10:00)
[2023-05-03] MEDS ORDERED: DICLOFENAC SODIUM 75 MG TABLET.DR PO SCH ×2 (10:00)
[2023-05-03] MEDS ORDERED: BISACODYL 5 MG TABLET.DR (FP) PO SCH (10:00)
[2023-05-03] MEDS: ALBUTEROL SO4 HFA INHALER IH PRN (11:23)
[2023-05-03] MEDS ORDERED: NITROGLYCERIN 2% OINTMENT - 1GM PACKET TD ONE (12:00)
[2023-05-03] MEDS: FLUTICASONE PROP 0.05% 16 GM NASAL SPRAY NS SCH (15:33)
[2023-05-03] MEDS: ATORVASTATIN CA 20 MG TABLET (FP) PO SCH (21:55)
[2023-05-04] MEDS ORDERED: chlordiazePOXIDE HCL 25 MG CAPSULE PO SCH (05:00)
[2023-05-04] MEDS: LORazepam 1 MG TABLET PO SCH ×3 (06:25→16:13)
[2023-05-04] MEDS: LEVOTHYROXINE NA 75 MCG TABLET (FP) PO SCH (06:25)
[2023-05-04] MEDS: FUROSEMIDE 20 MG TABLET (FP) PO SCH ×2 (06:25→13:21)
[2023-05-04] MEDS: TAMSULOSIN HCL 0.4 MG CAP PO SCH (08:53)
[2023-05-04] MEDS: ASPIRIN 81 MG CHEWABLE TABLETS PO SCH (09:21)
[2023-05-04] MEDS: FOLIC ACID 1 MG TABLET (FP) PO SCH (09:21)
[2023-05-04] MEDS: GABAPENTIN 300 MG CAPSULE PO SCH ×2 (09:21→22:03)
[2023-05-04] MEDS: ENOXAPARIN NA (PORCINE) 40 MG/0.4 ML DISP.SYRIN SQ SCH ×2 (09:21→22:06)
[2023-05-04] MEDS: ASCORBIC ACID 500 MG TABLET (FP) PO SCH (09:21)
[2023-05-04] MEDS: FINASTERIDE 5 MG TABLET (FP) PO SCH (09:21)
[2023-05-04] MEDS: THIAMINE HCL 100 MG TABLET (FP) PO SCH (09:21)
[2023-05-04] MEDS: CYCLOBENZAPRINE HCL 5 MG TABLET PO SCH ×2 (09:21→22:04)
[2023-05-04] MEDS: FLUTICASONE PROP 0.05% 16 GM NASAL SPRAY NS SCH (09:22)
[2023-05-04] MEDS: NICOTINE 14 MG/24 HOURS TOPICAL PATCH TD SCH (09:22)
[2023-05-04] MEDS: ALBUTEROL SO4 HFA INHALER IH PRN (09:23)
[2023-05-04] MEDS: BACITRACIN ZINC 15 GM TUBE TOPICAL OINTMENT TP SCH ×2 (09:23→22:03)
[2023-05-04 10:09] LABS: POTASSIUM 4.3 mmol/L (3.5-5.1)
[2023-05-04 10:11] LABS: ALBUMIN 2.9 g/dl (3.4-5.0); BLOOD UREA NITROGEN 19.8 mg/dL (7-18); CALCIUM 8.5 mg/dL (8.5-10.1); MAGNESIUM 2.3 mg/dL (1.8-2.4)
[2023-05-04 10:14] LABS: CREATININE 1.1 mg/dL (0.55-1.3); PHOSPHOROUS 3.9 mg/dL (2.5-4.9)
[2023-05-04 10:16] LABS: EOS % 2.8 % (0-4.5); HEMATOCRIT 38.7 % (35.4-49); LYMPH % 26.5 % (8-40); MEAN CELL VOLUME 80.6 fl (80-96); MEAN PLT VOLUME 8.3 fl (7.5-11.1); MONO % 10.5 % (3.8-10.2); NEUT % 59.2 % (42.8-82.8); PLATELET COUNT 274 10^3/uL (134-434); RDW 24.6 % (11.9-15.9); WHITE BLOOD COUNT 7.6 K/mm3 (4.0-10.0)
[2023-05-04 10:16] LABS: BILIRUBIN,TOTAL 0.2 mg/dL (0.2-1); TOT PROT 6.7 g/dl (6.4-8.2)
[2023-05-04] MEDS ORDERED: ACETAMINOPHEN 325 MG TABLET (FP) PO PRN (11:09)
[2023-05-04] MEDS: DOCUSATE SODIUM 100 MG CAPSULE (FP) PO SCH ×2 (13:21→22:03)
[2023-05-04] MEDS: ATORVASTATIN CA 20 MG TABLET (FP) PO SCH (22:03)
[2023-05-05] MEDS ORDERED: chlordiazePOXIDE HCL 10 MG CAPSULE PO PRN
[2023-05-05] MEDS: LORazepam 1 MG TABLET PO SCH (01:45)
[2023-05-05] MEDS ORDERED: chlordiazePOXIDE HCL 10 MG CAPSULE PO SCH (05:00)
[2023-05-05] MEDS ORDERED: LORazepam 0.5 MG TABLET PO SCH (05:00)
[2023-05-05 06:25] VITALS: RESP 19; TEMP 98
[2023-05-05] MEDS: LEVOTHYROXINE NA 75 MCG TABLET (FP) PO SCH (07:01)
[2023-05-05] MEDS: FUROSEMIDE 20 MG TABLET (FP) PO SCH ×2 (07:02→14:20)
[2023-05-05 07:59] LABS: HEMATOCRIT 36.1 % (35.4-49); HEMOGLOBIN 11.4 GM/dL (11.7-16.9); MCH 25.6 pg (25.7-33.7); MCHC 31.6 g/dl (32.0-35.9); MEAN CELL VOLUME 81.1 fl (80-96); MEAN PLT VOLUME 8.5 fl (7.5-11.1); PLATELET COUNT 233 10^3/uL (134-434); RBC 4.45 M/mm3 (4.00-5.60); RDW 24.3 % (11.9-15.9); WHITE BLOOD COUNT 7.4 K/mm3 (4.0-10.0)
[2023-05-05 08:06] LABS: INR 1.28 (0.83-1.09); PROTHROMBIN TIME (PATIENT) 14.8 SEC (9.7-13.0)
[2023-05-05 08:25] LABS: POTASSIUM 4.6 mmol/L (3.5-5.1)
[2023-05-05] MEDS: TAMSULOSIN HCL 0.4 MG CAP PO SCH (08:26)
[2023-05-05] MEDS: LORazepam 0.5 MG TABLET PO PRN ×2 (08:27)
[2023-05-05 08:33] LABS: CALCIUM 8.4 mg/dL (8.5-10.1)
[2023-05-05 08:34] LABS: ALBUMIN 2.9 g/dl (3.4-5.0); BLOOD UREA NITROGEN 19.8 mg/dL (7-18)
[2023-05-05 08:35] LABS: CREATININE 1.1 mg/dL (0.55-1.3)
[2023-05-05 08:36] LABS: BILIRUBIN,TOTAL 0.4 mg/dL (0.2-1)
[2023-05-05 08:37] LABS: TOT PROT 6.6 g/dl (6.4-8.2)
[2023-05-05] MEDS: DOCUSATE SODIUM 100 MG CAPSULE (FP) PO SCH (09:27)
[2023-05-05] MEDS: ENOXAPARIN NA (PORCINE) 40 MG/0.4 ML DISP.SYRIN SQ SCH (09:27)
[2023-05-05] MEDS: GABAPENTIN 300 MG CAPSULE PO SCH (09:27)
[2023-05-05] MEDS: CYCLOBENZAPRINE HCL 5 MG TABLET PO SCH (09:27)
[2023-05-05] MEDS: THIAMINE HCL 100 MG TABLET (FP) PO SCH (09:27)
[2023-05-05] MEDS: ASPIRIN 81 MG CHEWABLE TABLETS PO SCH (09:27)
[2023-05-05] MEDS: ALBUTEROL SO4 HFA INHALER IH PRN (09:28)
[2023-05-05] MEDS: FOLIC ACID 1 MG TABLET (FP) PO SCH (09:28)
[2023-05-05] MEDS: FLUTICASONE PROP 0.05% 16 GM NASAL SPRAY NS SCH (09:28)
[2023-05-05] MEDS: FINASTERIDE 5 MG TABLET (FP) PO SCH (09:28)
[2023-05-05] MEDS: ASCORBIC ACID 500 MG TABLET (FP) PO SCH (09:28)
[2023-05-05] MEDS: BACITRACIN ZINC 15 GM TUBE TOPICAL OINTMENT TP SCH (10:12)
[2023-05-05] MEDS: NICOTINE 14 MG/24 HOURS TOPICAL PATCH TD SCH (10:12)
[2023-05-05 12:17] VITALS: BP 131/75; PULSE 68
[2023-05-06] MEDS ORDERED: chlordiazePOXIDE HCL 10 MG CAPSULE PO SCH (05:00)
[2023-05-06] MEDS ORDERED: LORazepam 0.5 MG TABLET PO ONE (05:00)
[2023-05-06] MEDS ORDERED: ASPIRIN COATED 81 MG TABLET.EC PO SCH (10:00)
[2023-05-07] MEDS ORDERED: chlordiazePOXIDE HCL 10 MG CAPSULE PO ONE (05:00)
== END 2023-05-05 17:06 | disposition other institution (70) ==
LOC: JER 15:33 → JERBED 16:30 → J4W 05-03 02:10
PROVIDERS: ADMIT Internal Medicine; ATTEND Internal Medicine
PROC: 3E03329 Introduction of Other Anti-infective into Peripheral Vein, Percutaneous Approach (ICD-10-PCS; principal; 2023-05-02)
PROC: 3E023GC Introduction of Other Therapeutic Substance into Muscle, Percutaneous Approach (ICD-10-PCS; 2023-05-02)
PROC: 3E0337Z Introduction of Electrolytic and Water Balance Substance into Peripheral Vein, Percutaneous Approach (ICD-10-PCS; 2023-05-02)
DX: F10.139 Alcohol abuse with withdrawal, unspecified (principal); F19.10 Other psychoactive substance abuse, uncomplicated; I11.0 Hypertensive heart disease with heart failure; I50.9 Heart failure, unspecified; F31.9 Bipolar disorder, unspecified; J44.9 Chronic obstructive pulmonary disease, unspecified; G89.29 Other chronic pain; M51.36 Other intervertebral disc degeneration, lumbar region; R63.5 Abnormal weight gain; K92.1 Melena; K74.60 Unspecified cirrhosis of liver; N40.0 Benign prostatic hyperplasia without lower urinary tract symptoms; F41.8 Other specified anxiety disorders; R19.7 Diarrhea, unspecified; G47.30 Sleep apnea, unspecified; Z99.81 Dependence on supplemental oxygen; K64.9 Unspecified hemorrhoids; R07.89 Other chest pain
CPT/HCPCS: 0241U-QW; 36415; 71046-TC-FY; 71275-TC; 74174-TC; 80053; 80061; 81003; 82105; 82550; 82553; 82803; 83605; 83735; 84100; 84443; 84484; 85025; 85027; 85610; 85730; 86704; 86708; 86803; 86850; 86900; 86901; 87040; 87086; 87340; 87517; 93005; 93010; 93306-TC; 96365; 96372; 99291; G0378; Q9967

== ENCOUNTER 2023-05-05 17:28 | Inpatient (IN) | payer OTHER ==
[2023-05-05 20:51] VITALS: BMI 45.8
[2023-05-05] MEDS ORDERED: LOPERAMIDE HCL 2 MG CAPSULE PO PRN (21:22)
[2023-05-05] MEDS ORDERED: IBUPROFEN 400 MG TABLET (FP) PO PRN (21:22)
[2023-05-05] MEDS ORDERED: MAGNESIUM HYDROX 2400MG/30ML ORAL SUSPENSION 30 ML CUP PO PRN (21:22)
[2023-05-05] MEDS ORDERED: guaiFENesin 600 MG TABLET.ER (FP) PO PRN (21:22)
[2023-05-05] MEDS ORDERED: BENZONATATE 200 MG CAPSULE PO PRN (21:22)
[2023-05-05] MEDS ORDERED: POLYETHYLENE GLYCOL (HEALTHYLAX) 3350 17 GM PACKET PO PRN (21:22)
[2023-05-05] MEDS ORDERED: BENZOCAINE/MENTHOL (CHLORASEPTIC ) LOZENGE MM PRN (21:22)
[2023-05-05] MEDS ORDERED: NALOXONE HCL (KLOXXADO) 8 MG SPRAY NS PRN (21:22)
[2023-05-05] MEDS ORDERED: MAG HYDROX/AL HYDROX/SIMETH 30 ML UNIT-DOSE CUP PO PRN (21:22)
[2023-05-05] MEDS ORDERED: NALOXONE HCL 0.4 MG/ML VIAL IVPUSH PRN (21:22)
[2023-05-05] MEDS ORDERED: ACETAMINOPHEN 325 MG TABLET (FP) PO PRN (21:22)
[2023-05-06] MEDS: ATORVASTATIN CA 20 MG TABLET (FP) PO SCH ×2 (00:05→21:13)
[2023-05-06] MEDS: MELATONIN 5 MG TABLETS PO SCH ×2 (00:05→21:13)
[2023-05-06] MEDS: THIAMINE HCL 100 MG TABLET (FP) PO SCH ×2 (00:05→21:13)
[2023-05-06] MEDS: ALBUTEROL SO4 HFA INHALER IH PRN ×2 (01:48→18:17)
[2023-05-06] MEDS: IBUPROFEN 600 MG TABLET (FP) PO PRN (01:51)
[2023-05-06] MEDS: hydrOXYzine PAMOATE 25 MG CAPSULE (FP) PO PRN ×2 (01:51→06:55)
[2023-05-06] MEDS: FUROSEMIDE 20 MG TABLET (FP) PO SCH ×2 (06:52→13:59)
[2023-05-06] MEDS ORDERED: LEVOTHYROXINE NA 150 MCG TABLET PO SCH ×2 (07:00→10:00)
[2023-05-06] MEDS: LEVOTHYROXINE 100 MCG, LEVOTHYROXINE 50 MCG PO SCH (08:58)
[2023-05-06] MEDS: TAMSULOSIN HCL 0.4 MG CAP PO SCH (08:58)
[2023-05-06] MEDS: amLODIPine BESYLATE 10 MG TABLET (FP) PO SCH (08:59)
[2023-05-06] MEDS: PRENATAL VITAMINS W/ FOLIC ACID TABLET (FP) PO SCH (09:00)
[2023-05-06] MEDS: FINASTERIDE 5 MG TABLET (FP) PO SCH (10:25)
[2023-05-07] MEDS: hydrOXYzine PAMOATE 25 MG CAPSULE (FP) PO PRN (03:42)
[2023-05-07] MEDS: IBUPROFEN 600 MG TABLET (FP) PO PRN (03:42)
[2023-05-07] MEDS: LEVOTHYROXINE 100 MCG, LEVOTHYROXINE 50 MCG PO SCH (06:17)
[2023-05-07] MEDS: FUROSEMIDE 20 MG TABLET (FP) PO SCH ×2 (06:18→13:42)
[2023-05-07] MEDS: FINASTERIDE 5 MG TABLET (FP) PO SCH (10:00)
[2023-05-07] MEDS: TAMSULOSIN HCL 0.4 MG CAP PO SCH (10:00)
[2023-05-07] MEDS: amLODIPine BESYLATE 10 MG TABLET (FP) PO SCH (10:00)
[2023-05-07] MEDS: PRENATAL VITAMINS W/ FOLIC ACID TABLET (FP) PO SCH (10:00)
[2023-05-07] MEDS: THIAMINE HCL 100 MG TABLET (FP) PO SCH (21:13)
[2023-05-07] MEDS: ATORVASTATIN CA 20 MG TABLET (FP) PO SCH (21:13)
[2023-05-07] MEDS: MELATONIN 5 MG TABLETS PO SCH (21:13)
[2023-05-08] MEDS: ALBUTEROL SO4 HFA INHALER IH PRN (06:14)
[2023-05-08] MEDS: LEVOTHYROXINE 100 MCG, LEVOTHYROXINE 50 MCG PO SCH (06:14)
[2023-05-08] MEDS: IBUPROFEN 600 MG TABLET (FP) PO PRN (06:15)
[2023-05-08] MEDS: hydrOXYzine PAMOATE 25 MG CAPSULE (FP) PO PRN ×2 (06:16→23:16)
[2023-05-08] MEDS: FUROSEMIDE 20 MG TABLET (FP) PO SCH ×2 (06:27→13:47)
[2023-05-08] MEDS: PRENATAL VITAMINS W/ FOLIC ACID TABLET (FP) PO SCH (09:16)
[2023-05-08] MEDS: TAMSULOSIN HCL 0.4 MG CAP PO SCH (09:16)
[2023-05-08] MEDS: FINASTERIDE 5 MG TABLET (FP) PO SCH (09:16)
[2023-05-08] MEDS: amLODIPine BESYLATE 10 MG TABLET (FP) PO SCH (09:16)
[2023-05-08] MEDS: THIAMINE HCL 100 MG TABLET (FP) PO SCH (21:13)
[2023-05-08] MEDS: ATORVASTATIN CA 20 MG TABLET (FP) PO SCH (21:13)
[2023-05-08] MEDS: MELATONIN 5 MG TABLETS PO SCH (21:13)
[2023-05-09] MEDS: FUROSEMIDE 20 MG TABLET (FP) PO SCH ×2 (06:04→13:40)
[2023-05-09] MEDS: LEVOTHYROXINE 100 MCG, LEVOTHYROXINE 50 MCG PO SCH (06:04)
[2023-05-09] MEDS: ALBUTEROL SO4 HFA INHALER IH PRN (06:04)
[2023-05-09] MEDS: IBUPROFEN 600 MG TABLET (FP) PO PRN (06:04)
[2023-05-09] MEDS: FINASTERIDE 5 MG TABLET (FP) PO SCH (09:49)
[2023-05-09] MEDS: amLODIPine BESYLATE 10 MG TABLET (FP) PO SCH (09:49)
[2023-05-09] MEDS: TAMSULOSIN HCL 0.4 MG CAP PO SCH (09:49)
[2023-05-09] MEDS: PRENATAL VITAMINS W/ FOLIC ACID TABLET (FP) PO SCH (09:49)
[2023-05-09] MEDS: ATORVASTATIN CA 20 MG TABLET (FP) PO SCH (21:04)
[2023-05-09] MEDS: MELATONIN 5 MG TABLETS PO SCH (21:04)
[2023-05-09] MEDS: THIAMINE HCL 100 MG TABLET (FP) PO SCH (21:04)
[2023-05-10] MEDS: LEVOTHYROXINE 100 MCG, LEVOTHYROXINE 50 MCG PO SCH (06:10)
[2023-05-10] MEDS: FUROSEMIDE 20 MG TABLET (FP) PO SCH ×2 (06:10→13:20)
[2023-05-10] MEDS: TAMSULOSIN HCL 0.4 MG CAP PO SCH (07:32)
[2023-05-10] MEDS: amLODIPine BESYLATE 10 MG TABLET (FP) PO SCH (10:50)
[2023-05-10] MEDS: FINASTERIDE 5 MG TABLET (FP) PO SCH (10:50)
[2023-05-10] MEDS: PRENATAL VITAMINS W/ FOLIC ACID TABLET (FP) PO SCH (10:50)
[2023-05-10] MEDS: IBUPROFEN 600 MG TABLET (FP) PO PRN (14:40)
[2023-05-10] MEDS: THIAMINE HCL 100 MG TABLET (FP) PO SCH (21:11)
[2023-05-10] MEDS: ATORVASTATIN CA 20 MG TABLET (FP) PO SCH (21:11)
[2023-05-10] MEDS: MELATONIN 5 MG TABLETS PO SCH (21:11)
[2023-05-10] MEDS: hydrOXYzine PAMOATE 25 MG CAPSULE (FP) PO PRN (21:11)
[2023-05-11] MEDS: LEVOTHYROXINE 100 MCG, LEVOTHYROXINE 50 MCG PO SCH (06:24)
[2023-05-11] MEDS: FUROSEMIDE 20 MG TABLET (FP) PO SCH ×2 (06:24→13:44)
[2023-05-11] MEDS: IBUPROFEN 600 MG TABLET (FP) PO PRN (06:25)
[2023-05-11] MEDS: ALBUTEROL SO4 HFA INHALER IH PRN (06:26)
[2023-05-11] MEDS: hydrOXYzine PAMOATE 25 MG CAPSULE (FP) PO PRN ×2 (06:26→21:14)
[2023-05-11] MEDS: amLODIPine BESYLATE 10 MG TABLET (FP) PO SCH (10:09)
[2023-05-11] MEDS: FINASTERIDE 5 MG TABLET (FP) PO SCH (10:09)
[2023-05-11] MEDS: PRENATAL VITAMINS W/ FOLIC ACID TABLET (FP) PO SCH (10:09)
[2023-05-11] MEDS: TAMSULOSIN HCL 0.4 MG CAP PO SCH (10:09)
[2023-05-11] MEDS: MELATONIN 5 MG TABLETS PO SCH (21:14)
[2023-05-11] MEDS: ATORVASTATIN CA 20 MG TABLET (FP) PO SCH (21:14)
[2023-05-11] MEDS: THIAMINE HCL 100 MG TABLET (FP) PO SCH (21:14)
[2023-05-12] MEDS: FUROSEMIDE 20 MG TABLET (FP) PO SCH ×2 (06:00→14:01)
[2023-05-12] MEDS: LEVOTHYROXINE 100 MCG, LEVOTHYROXINE 50 MCG PO SCH (06:00)
[2023-05-12] MEDS: IBUPROFEN 600 MG TABLET (FP) PO PRN (06:01)
[2023-05-12] MEDS: hydrOXYzine PAMOATE 25 MG CAPSULE (FP) PO PRN (06:01)
[2023-05-12] MEDS: TAMSULOSIN HCL 0.4 MG CAP PO SCH (09:01)
[2023-05-12] MEDS: PRENATAL VITAMINS W/ FOLIC ACID TABLET (FP) PO SCH (10:48)
[2023-05-12] MEDS: FINASTERIDE 5 MG TABLET (FP) PO SCH (10:48)
[2023-05-12] MEDS: amLODIPine BESYLATE 10 MG TABLET (FP) PO SCH (10:48)
[2023-05-12] MEDS: ALBUTEROL SO4 HFA INHALER IH PRN (11:38)
[2023-05-12] MEDS ORDERED: LACTULOSE 20 GM/30 ML UDC (FOR ORAL USE ONLY) PO PRN (11:39)
[2023-05-12] MEDS ORDERED: AMMONIUM LACTATE 12% LOTION 225 GM BOTTLE TP PRN (11:40)
[2023-05-12] MEDS: SODIUM CHLORIDE NASAL SPRAY 44 ML BOTTLE NS PRN (14:00)
[2023-05-12] MEDS ORDERED: NALTREXONE HCL 50 MG TABLET PO ONE (14:00)
[2023-05-12] MEDS: THIAMINE HCL 100 MG TABLET (FP) PO SCH (21:22)
[2023-05-12] MEDS: SUVOREXANT 10 MG TABLET PO PRN (21:22)
[2023-05-12] MEDS: ATORVASTATIN CA 20 MG TABLET (FP) PO SCH (21:23)
[2023-05-13] MEDS: FUROSEMIDE 20 MG TABLET (FP) PO SCH ×2 (05:48→13:44)
[2023-05-13] MEDS: LEVOTHYROXINE 100 MCG, LEVOTHYROXINE 50 MCG PO SCH (06:21)
[2023-05-13] MEDS: TAMSULOSIN HCL 0.4 MG CAP PO SCH (07:37)
[2023-05-13] MEDS: FINASTERIDE 5 MG TABLET (FP) PO SCH (10:13)
[2023-05-13] MEDS: PRENATAL VITAMINS W/ FOLIC ACID TABLET (FP) PO SCH (10:13)
[2023-05-13] MEDS: NALTREXONE HCL 50 MG TABLET PO SCH (10:13)
[2023-05-13] MEDS: amLODIPine BESYLATE 10 MG TABLET (FP) PO SCH (10:13)
[2023-05-13] MEDS: THIAMINE HCL 100 MG TABLET (FP) PO SCH (21:15)
[2023-05-13] MEDS: SUVOREXANT 10 MG TABLET PO PRN (21:15)
[2023-05-13] MEDS: hydrOXYzine PAMOATE 25 MG CAPSULE (FP) PO PRN (21:15)
[2023-05-13] MEDS: ATORVASTATIN CA 20 MG TABLET (FP) PO SCH (21:15)
[2023-05-14] MEDS: FUROSEMIDE 20 MG TABLET (FP) PO SCH ×2 (05:57→14:14)
[2023-05-14] MEDS: LEVOTHYROXINE 100 MCG, LEVOTHYROXINE 50 MCG PO SCH (05:58)
[2023-05-14] MEDS: IBUPROFEN 600 MG TABLET (FP) PO PRN (05:58)
[2023-05-14] MEDS: PRENATAL VITAMINS W/ FOLIC ACID TABLET (FP) PO SCH (10:09)
[2023-05-14] MEDS: NALTREXONE HCL 50 MG TABLET PO SCH (10:10)
[2023-05-14] MEDS: amLODIPine BESYLATE 10 MG TABLET (FP) PO SCH (10:10)
[2023-05-14] MEDS: FINASTERIDE 5 MG TABLET (FP) PO SCH (10:10)
[2023-05-14] MEDS: TAMSULOSIN HCL 0.4 MG CAP PO SCH (10:10)
[2023-05-14] MEDS: ATORVASTATIN CA 20 MG TABLET (FP) PO SCH (21:10)
[2023-05-14] MEDS: THIAMINE HCL 100 MG TABLET (FP) PO SCH (21:11)
[2023-05-14] MEDS: SUVOREXANT 10 MG TABLET PO PRN (21:11)
[2023-05-14] MEDS: hydrOXYzine PAMOATE 25 MG CAPSULE (FP) PO PRN (21:11)
[2023-05-15] MEDS: ALBUTEROL SO4 HFA INHALER IH PRN (03:32)
[2023-05-15] MEDS: LEVOTHYROXINE 100 MCG, LEVOTHYROXINE 50 MCG PO SCH (06:03)
[2023-05-15] MEDS: IBUPROFEN 600 MG TABLET (FP) PO PRN (06:04)
[2023-05-15] MEDS: FUROSEMIDE 20 MG TABLET (FP) PO SCH ×2 (06:04→13:28)
[2023-05-15] MEDS: hydrOXYzine PAMOATE 25 MG CAPSULE (FP) PO PRN ×2 (06:05→21:14)
[2023-05-15] MEDS: TAMSULOSIN HCL 0.4 MG CAP PO SCH (09:11)
[2023-05-15] MEDS: PRENATAL VITAMINS W/ FOLIC ACID TABLET (FP) PO SCH (09:11)
[2023-05-15] MEDS: FINASTERIDE 5 MG TABLET (FP) PO SCH (09:11)
[2023-05-15] MEDS: NALTREXONE HCL 50 MG TABLET PO SCH (09:11)
[2023-05-15] MEDS: amLODIPine BESYLATE 10 MG TABLET (FP) PO SCH (09:11)
[2023-05-15] MEDS: SUVOREXANT 10 MG TABLET PO PRN (21:14)
[2023-05-15] MEDS: THIAMINE HCL 100 MG TABLET (FP) PO SCH (21:14)
[2023-05-15] MEDS: ATORVASTATIN CA 20 MG TABLET (FP) PO SCH (21:14)
[2023-05-16] MEDS: COLLOIDAL OATMEAL 1 BAR EACH TP PRN (06:20)
[2023-05-16] MEDS: LEVOTHYROXINE 100 MCG, LEVOTHYROXINE 50 MCG PO SCH (06:22)
[2023-05-16] MEDS: FUROSEMIDE 20 MG TABLET (FP) PO SCH ×2 (06:22→13:50)
[2023-05-16] MEDS: TAMSULOSIN HCL 0.4 MG CAP PO SCH (09:30)
[2023-05-16] MEDS: amLODIPine BESYLATE 10 MG TABLET (FP) PO SCH (10:20)
[2023-05-16] MEDS: NALTREXONE HCL 50 MG TABLET PO SCH (10:20)
[2023-05-16] MEDS: FINASTERIDE 5 MG TABLET (FP) PO SCH (10:21)
[2023-05-16] MEDS: PRENATAL VITAMINS W/ FOLIC ACID TABLET (FP) PO SCH (10:21)
[2023-05-16] MEDS: IBUPROFEN 600 MG TABLET (FP) PO PRN (18:32)
[2023-05-16] MEDS: hydrOXYzine PAMOATE 25 MG CAPSULE (FP) PO PRN (21:12)
[2023-05-16] MEDS: ATORVASTATIN CA 20 MG TABLET (FP) PO SCH (21:12)
[2023-05-16] MEDS: THIAMINE HCL 100 MG TABLET (FP) PO SCH (21:12)
[2023-05-16] MEDS: SUVOREXANT 10 MG TABLET PO PRN (21:13)
[2023-05-17] MEDS: LEVOTHYROXINE 100 MCG, LEVOTHYROXINE 50 MCG PO SCH (06:02)
[2023-05-17] MEDS: FUROSEMIDE 20 MG TABLET (FP) PO SCH ×2 (06:02→13:12)
[2023-05-17] MEDS: IBUPROFEN 600 MG TABLET (FP) PO PRN ×2 (06:05→20:10)
[2023-05-17] MEDS: COLLOIDAL OATMEAL 1 BAR EACH TP PRN (06:21)
[2023-05-17] MEDS: TAMSULOSIN HCL 0.4 MG CAP PO SCH (09:01)
[2023-05-17] MEDS: FINASTERIDE 5 MG TABLET (FP) PO SCH (09:01)
[2023-05-17] MEDS: amLODIPine BESYLATE 10 MG TABLET (FP) PO SCH (09:01)
[2023-05-17] MEDS: PRENATAL VITAMINS W/ FOLIC ACID TABLET (FP) PO SCH (09:01)
[2023-05-17] MEDS: NALTREXONE HCL 50 MG TABLET PO SCH (09:02)
[2023-05-17] MEDS: SUVOREXANT 10 MG TABLET PO PRN (21:24)
[2023-05-17] MEDS: THIAMINE HCL 100 MG TABLET (FP) PO SCH (21:25)
[2023-05-17] MEDS: ATORVASTATIN CA 20 MG TABLET (FP) PO SCH (21:25)
[2023-05-17] MEDS ORDERED: SUVOREXANT 10 MG TABLET PO PRN (22:00)
[2023-05-18] MEDS: IBUPROFEN 600 MG TABLET (FP) PO PRN (05:55)
[2023-05-18] MEDS: FUROSEMIDE 20 MG TABLET (FP) PO SCH ×2 (05:55→13:42)
[2023-05-18] MEDS: LEVOTHYROXINE 100 MCG, LEVOTHYROXINE 50 MCG PO SCH (06:45)
[2023-05-18] MEDS: amLODIPine BESYLATE 10 MG TABLET (FP) PO SCH (09:52)
[2023-05-18] MEDS: FINASTERIDE 5 MG TABLET (FP) PO SCH (09:52)
[2023-05-18] MEDS: TAMSULOSIN HCL 0.4 MG CAP PO SCH (09:52)
[2023-05-18] MEDS: PRENATAL VITAMINS W/ FOLIC ACID TABLET (FP) PO SCH (09:52)
[2023-05-18] MEDS: NALTREXONE HCL 50 MG TABLET PO SCH (09:52)
[2023-05-18] MEDS: ALBUTEROL SO4 HFA INHALER IH PRN (09:53)
[2023-05-18] MEDS: SODIUM CHLORIDE NASAL SPRAY 44 ML BOTTLE NS PRN (09:54)
[2023-05-18] MEDS: THIAMINE HCL 100 MG TABLET (FP) PO SCH (21:04)
[2023-05-18] MEDS: SUVOREXANT 10 MG TABLET PO PRN (21:04)
[2023-05-18] MEDS: ATORVASTATIN CA 20 MG TABLET (FP) PO SCH (21:05)
[2023-05-19] MEDS: hydrOXYzine PAMOATE 25 MG CAPSULE (FP) PO PRN ×2 (06:39→21:09)
[2023-05-19] MEDS: LEVOTHYROXINE 100 MCG, LEVOTHYROXINE 50 MCG PO SCH (06:39)
[2023-05-19] MEDS: FUROSEMIDE 20 MG TABLET (FP) PO SCH ×2 (06:39→14:55)
[2023-05-19] MEDS: amLODIPine BESYLATE 10 MG TABLET (FP) PO SCH (09:24)
[2023-05-19] MEDS: FINASTERIDE 5 MG TABLET (FP) PO SCH (09:24)
[2023-05-19] MEDS: PRENATAL VITAMINS W/ FOLIC ACID TABLET (FP) PO SCH (09:24)
[2023-05-19] MEDS: TAMSULOSIN HCL 0.4 MG CAP PO SCH (09:24)
[2023-05-19] MEDS ORDERED: NALTREXONE MICROSPHERES (VIVITROL) 380 MG DISP.SYRIN IM ONE (10:00)
[2023-05-19] MEDS: ATORVASTATIN CA 20 MG TABLET (FP) PO SCH (21:09)
[2023-05-19] MEDS: THIAMINE HCL 100 MG TABLET (FP) PO SCH (21:10)
[2023-05-19] MEDS ORDERED: SUVOREXANT 10 MG TABLET PO PRN (22:00)
[2023-05-20] MEDS: hydrOXYzine PAMOATE 25 MG CAPSULE (FP) PO PRN (01:03)
[2023-05-20] MEDS: IBUPROFEN 600 MG TABLET (FP) PO PRN (01:03)
[2023-05-20] MEDS: ALBUTEROL SO4 HFA INHALER IH PRN (01:04)
[2023-05-20] MEDS: FUROSEMIDE 20 MG TABLET (FP) PO SCH ×2 (06:14→13:10)
[2023-05-20] MEDS: LEVOTHYROXINE 100 MCG, LEVOTHYROXINE 50 MCG PO SCH (06:14)
[2023-05-20 07:04] VITALS: PULSE 66; RESP 18; TEMP 97.8
[2023-05-20 09:12] VITALS: BP 116/72
[2023-05-20] MEDS: PRENATAL VITAMINS W/ FOLIC ACID TABLET (FP) PO SCH (09:51)
[2023-05-20] MEDS: amLODIPine BESYLATE 10 MG TABLET (FP) PO SCH (09:52)
[2023-05-20] MEDS: FINASTERIDE 5 MG TABLET (FP) PO SCH (09:52)
[2023-05-20] MEDS: TAMSULOSIN HCL 0.4 MG CAP PO SCH (09:52)
== END 2023-05-20 15:45 | disposition home or self-care (01) | DRG 772 ==
LOC: YASAS 17:28 → Y3W 05-06 00:09
PROVIDERS: ADMIT Psychiatry & Neurology Pain Medicine; ATTEND Surgery
PROC: HZ42ZZZ Group Counseling for Substance Abuse Treatment, Cognitive-Behavioral (ICD-10-PCS; principal; 2023-05-06)
DX: F10.20 Alcohol dependence, uncomplicated (principal); F14.20 Cocaine dependence, uncomplicated; F12.20 Cannabis dependence, uncomplicated; F17.210 Nicotine dependence, cigarettes, uncomplicated; F31.9 Bipolar disorder, unspecified; H43.399 Other vitreous opacities, unspecified eye; G47.30 Sleep apnea, unspecified; I10 Essential (primary) hypertension; J44.9 Chronic obstructive pulmonary disease, unspecified; K74.60 Unspecified cirrhosis of liver; M51.36 Other intervertebral disc degeneration, lumbar region; R07.9 Chest pain, unspecified; Z96.652 Presence of left artificial knee joint; Z99.89 Dependence on other enabling machines and devices; Z59.01 Sheltered homelessness
CPT/HCPCS: 87635; J2315

== ENCOUNTER 2023-09-25 16:13 | Emergency (ER) | payer OTHER ==
[2023-09-25 16:20] VITALS: BP 115/57; PULSE 73; RESP 22; TEMP 97.6; BMI 46.9
[2023-09-25 17:46] LABS: EPI CELLS 8 /uL (0-25.1); HYALINE CASTS 0 /uL (0-3.1); PH,URINE 5.5 (5.0-8.0); URINE APPEARANCE CLEAR; URINE BACTERIA 2 /uL (0-1359); URINE BILIRUBIN NEGATIVE (NEGATIVE); URINE COLOR YELLOW; URINE GLUCOSE (UA) NEGATIVE (NEGATIVE); URINE KETONE NEGATIVE (NEGATIVE); URINE LEUK ESTERASE TRACE (NEGATIVE); URINE NITRITE NEGATIVE (NEGATIVE); URINE PROTEIN NEGATIVE (NEGATIVE); URINE RBC 11 /uL (0-23.9); URINE UROBILINOGEN 0.2 mg/dL (0.2-1.0); URINE WBC 133 /uL (0-25.8)
[2023-09-25 18:10] LABS: BASO % 0.4 % (0-2.0); EOS % 3.8 % (0-4.5); HEMOGLOBIN 13.4 GM/dL (11.7-16.9); LYMPH % 21.4 % (8-40); MCH 28.8 pg (25.7-33.7); MCHC 32.7 g/dl (32.0-35.9); MEAN PLT VOLUME 9.1 fl (7.5-11.1); MONO % 8.9 % (3.8-10.2); NEUT % 65.5 % (42.8-82.8); PLATELET COUNT 177 10^3/uL (134-434); RBC 4.66 M/mm3 (4.00-5.60); RDW 19.1 % (11.9-15.9); WHITE BLOOD COUNT 9.9 K/mm3 (4.0-10.0)
[2023-09-25 18:22] LABS: INR 1.11 (0.83-1.09); PROTHROMBIN TIME (PATIENT) 12.5 SEC (9.7-13.0)
[2023-09-25 18:24] LABS: POTASSIUM 4.8 mmol/L (3.5-5.1)
[2023-09-25 18:25] LABS: ACTIVATED PTT 33.2 SECONDS (25.2-36.5)
[2023-09-25 18:26] LABS: CALCIUM 9.3 mg/dL (8.5-10.1)
[2023-09-25 18:27] LABS: ALBUMIN 3.2 g/dl (3.4-5.0); BLOOD UREA NITROGEN 27.1 mg/dL (7-18); MAGNESIUM 2.3 mg/dL (1.8-2.4)
[2023-09-25 18:30] LABS: CREATININE 1.2 mg/dL (0.55-1.3)
[2023-09-25 18:31] LABS: TOT PROT 7.1 g/dl (6.4-8.2)
[2023-09-25 18:32] LABS: BILIRUBIN,TOTAL 0.4 mg/dL (0.2-1)
[2023-09-25] MEDS ORDERED: FAMOTIDINE 20 MG TABLET ONE (18:36)
[2023-09-25] MEDS ORDERED: ALBUTEROL SO4 2.5/IPRATROPIUM 0.5 INH SOL 3 ML VIAL.NEB. NEB ONE (18:37)
[2023-09-25] MEDS ORDERED: ACETAMINOPHEN 325 MG TABLET (FP) ONE (18:37)
[2023-09-25] MEDS ORDERED: MAG HYDROX/AL HYDROX/SIMETH 30 ML UNIT-DOSE CUP ONE (18:37)
[2023-09-25] MEDS: MAG HYDROX/AL HYDROX/SIMETH 30 ML UNIT-DOSE CUP PO ONE (18:59)
[2023-09-25] MEDS: ALBUTEROL SO4 2.5/IPRATROPIUM 0.5 INH SOL 3 ML VIAL.NEB. NEB ONE (18:59)
[2023-09-25] MEDS: ACETAMINOPHEN 500 MG TABLET (FP) PO ONE (19:00)
[2023-09-25] MEDS: FAMOTIDINE 20 MG TABLET PO ONE (19:00)
[2023-09-25 19:39] LABS: VENOUS BASE EXCESS -2.4 mmol/L (-2-2); VENOUS O2 SATURATION 93.7 % (70-80); VENOUS PCO2 39.6 mmHg (38-52); VENOUS PH 7.373 (7.310-7.410)
== END 2023-09-25 20:48 | disposition home or self-care (01) ==
LOC: JER 16:13
DX: R07.89 Other chest pain (principal); R10.13 Epigastric pain; J44.9 Chronic obstructive pulmonary disease, unspecified; R06.02 Shortness of breath; F10.20 Alcohol dependence, uncomplicated; F14.20 Cocaine dependence, uncomplicated; Z20.822 Contact with and (suspected) exposure to COVID-19
CPT/HCPCS: 0241U-QW; 36415; 71046-TC-FY; 80053; 81003; 82803; 83690; 83735; 84484; 85025; 85610; 85730; 93005; 93010; 99285-25